=== PATIENT | female | born 1995 | race Caucasian/White ===

== ENCOUNTER → 2017-01-08 | Outpatient (CLI) | payer BC | LOC: MW.CHOBGYN 13:19 | PROVIDERS: ATTEND Nurse Practitioner Women's Health | DX: N92.1 Excessive and frequent menstruation with irregular cycle (principal) | CPT/HCPCS: 36415; 82627; 82670; 83001; 83002; 83498; 84144; 84146; 84270; 84402; 84439; 84443; 84703 ==

== ENCOUNTER → 2017-01-10 | Outpatient (CLI) | payer BC ==
--- NOTE | 2017-01-10 16:28 | US ---
EXAMINATION: Transvaginal pelvic ultrasound HISTORY: Irregular menstruation COMPARISON: None TECHNIQUE: Grayscale, color Doppler, and spectral Doppler images obtained transvaginally. FINDINGS: The uterus appears normal size, contour, and echogenicity without a focal uterine mass. En dometrial stripe thickness measures 5 mm. Both the left and right ovaries are normal in size, contour, and echogenicity demonstrating normal c olor and spectral Doppler flow. Multiple tiny follicles are noted. IMPRESSION: 1. Unremarkable transvaginal pelvic ultrasound.
== END ==
LOC: MW.US 10:18
PROVIDERS: ATTEND Nurse Practitioner Women's Health
DX: N92.1 Excessive and frequent menstruation with irregular cycle (principal)
CPT/HCPCS: 76830; 76830-26

== ENCOUNTER 2017-06-14 13:02 | Emergency (ER) | payer SELFPAY ==
[2017-06-14] MEDS ORDERED: Ketorolac 30 MG/ML SDV IVPUSH ONE (13:22)
[2017-06-14] MEDS ORDERED: Ondansetron 4 MG/2 ML SDV IVPUSH ONE (13:22)
--- NOTE | 2017-06-14 13:23 | EDM.PDOC ---
ED HPI GENERAL MEDICAL PROBLEM - General Chief Complaint: Fever Stated Complaint: FLU LIKE SYMPTOMS Time Seen by Provider: 06/14/17 13:04 Source of Information: Reports: Patient History Limitations: Reports: No Limitations - History of Present Illness INITIAL COMMENTS - FREE TEXT/NARRATIVE: HISTORY AND PHYSICAL: History of present illness: Patient is a 22-year-old female who presents to the emergency room today with complaints of body aches, fever, nausea, vomiting 6 days. Started to have a sore throat with a painful swallowing which started yesterday. Concerned that she has fever blisters to her mouth. Patient denies being around anyone who has had flulike symptoms of the past 24-48 hours. Reports that she has no current health problems but did have some "kidney issues" which are currently are now resolved. Patient does not remember her last menstraul period, as she is frequently irregular. She sees Magaly Salmeron the clinic for irregular menses. Reports she does have a possibility of today. Patient denies any specific abdominal pain, chest pain, shortness of breath, or diarrhea. Review of systems: As per history of present illness and below otherwise all systems reviewed and negative. Past medical history: As per history of present illness and as reviewed below otherwise noncontributory. Surgical history: As per history of present illness and as reviewed below otherwise noncontributory. Social history: No reported history of drug or alcohol abuse. Family history: As per history of present illness and as reviewed below otherwise noncontributory. Physical exam: General: Nontoxic appearing 22-year-old female. Answers questions appropriately. Alert and oriented HEENT: Atraumatic, normocephalic, pupils reactive, negative for conjunctival pallor or scleral icterus, mucous membranes moist, throat clear, neck supple, nontender, trachea midline. Lips appear dry with blistering noted to the right external coronary. Lungs: Clear to auscultation, breath sounds equal bilaterally, chest nontender. Heart: S1S2, regular rate and rhythm, tachycardic. Abdomen: Soft, nondistended, nontender. Negative for masses or hepatosplenomegaly. Negative for costovertebral tenderness. Pelvis: Stable nontender. Genitourinary: Deferred. Rectal: Deferred. Extremities: Atraumatic, negative for cords or calf pain. Neurovascular unremarkable. Neuro: Awake, alert, oriented. Cranial nerves II through XII unremarkable. Cerebellum unremarkable. Motor and sensory unremarkable throughout. Exam nonfocal. Patient received her IV fluid and IV medications. Patient reports that she does feel improvement. Pulse remains in the 120s at this time, I will give her a second liter of fluids. Reviewed her labs with the patient and feel that this is likely viral. She received her second liter of fluids and pulse is currently 106-110. Patient report she feels better and would like to be discharged. Offered a prescription for Zofran for her nausea, patient declined as she feels much improved. Encouraged patient to drink plenty of fluids at home I get plenty of rest. Instructed patient to follow-up with her primary care provider in the next 1-2 days. Patient voices understanding and is agreeable to plan of care. Denies any further questions or concerns at this time. Diagnostics: CBC, CMP, UA, urine , rapid strep, flu screen Therapeutics: IV fluid, Zofran, Toradol Impression: Viral illness Plan: 1. Please get plenty of rest. Drink plenty of fluids and eat a well-balanced diet at home. May take Tylenol for fever control. 2. Follow-up with your primary care provider in the next 1-2 days. Return to the ED as needed as discussed. Definitive disposition and diagnosis as appropriate pending reevaluation and review of above. Onset Date: 06/13/17 Duration: Day(s): Location: Reports: Neck, Generalized Improves with: Reports: None Worsens with: Reports: None Associated Symptoms: Reports: Fever/Chills, Nausea/Vomiting. Denies: Chest Pain , Cough, Rash, Shortness of Breath Generalized Pain Score (Numeric/FACES): 7 - Related Data Allergies Allergy/AdvReac Type Severity Reaction Status Date / Time No Known Allergies Allergy Verified 06/14/17 13:11 Home Meds: Home Meds . 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: Musculoskeletal History: Reports: None Neurological History: Reports: None Psychiatric History: Reports: None Endocrine/Metabolic History: Reports: None Hematologic History: Reports: None Immunologic History: Reports: None Oncologic (Cancer) History: Reports: None Dermatologic History: Reports: None - Infectious Disease History Infectious Disease History: Reports: None - Past Surgical History Head Surgeries/Procedures: Reports: None Female Surgical History: Reports: None Social & Family History - Family History Family Medical History: Noncontributory - Tobacco Use Smoking Status *Q: Former Smoker Years of Tobacco use: 3 Packs/Tins Daily: 0.5 Used Tobacco, but Quit: No Tobacco Use Comment: stated quit a month ago Second Hand Smoke Exposure: No - Caffeine Use Caffeine Use: Reports: Coffee, Soda - Alcohol Use Days Per Week of Alcohol Use: 0 Number of Drinks Per Day: 0 Total Drinks Per Week: 0 - Recreational Drug Use Recreational Drug Use: No ED ROS GENERAL - Review of Systems Review Of Systems: ROS reveals no pertinent complaints other than HPI. ED EXAM, GENERAL - Physical Exam Exam: See Below (See dictation) Course - Vital Signs Last Recorded V/S: Last Vital Signs Temp 37.6 C 06/14/17 13:11 Pulse 136 H 06/14/17 13:11 Resp 19 06/14/17 13:11 BP 122/77 06/14/17 13:11 Pulse Ox 97 06/14/17 13:11 - Orders/Labs/Meds Orders: Active Orders 24 hr Category Date Time Status CULTURE STREP A CONFIRMATION [] Stat Lab 06/14/17 13:38 Results STREP SCRN A RAPID W CULT CONF [] Stat Lab 06/14/17 13:38 Results Sodium Chloride 0.9% [Normal Saline] 1,000 ml Med 06/14/17 14:15 Active IV ASDIRECTED Medication Orders Sodium Chloride (Normal Saline) 1,000 mls @ 999 mls/hr IV ASDIRECTED MARVIN Labs: Laboratory Tests 06/14/17 06/14/17 06/14/17 Range/Units 13:20 13:20 13:25 WBC 11.77 H (4.0-11.0) K/uL RBC 5.17 (4.30-5.90) M/uL Hgb 15.8 (12.0-16.0) g/dL Hct 46.7 H (36.0-46.0) % MCV 90.3 (80.0-98.0) fL MCH 30.6 (27.0-32.0) pg MCHC 33.8 (31.0-37.0) g/dL RDW Std Deviation 43.1 (28.0-62.0) fl RDW Coeff of [place]ft[place] 13 (11.0-15.0) % Plt Count 237 (150-400) K/uL MPV 10.10 (7.40-12.00) fL Neut % (Auto) 74.7 (48.0-80.0) % Lymph % (Auto) 14.5 L (16.0-40.0) % [place] % (Auto) 10.5 (0.0-15.0) % Eos % (Auto) 0.1 (0.0-7.0) % Baso % (Auto) 0.2 (0.0-1.5) % Neut # (Auto) 8.8 H (1.4-5.7) K/uL Lymph # (Auto) 1.7 (0.6-2.4) K/uL [place] # (Auto) 1.2 H (0.0-0.8) K/uL Eos # (Auto) 0.0 (0.0-0.7) K/uL Baso # (Auto) 0.0 (0.0-0.1) K/uL Nucleated RBC % 0.0 /100WBC Nucleated RBCs # 0 K/uL Sodium 138 (136-146) mmol/L Potassium 4.3 (3.5-5.1) mmol/L Chloride 106 (98-110) mmol/L Carbon Dioxide 21 (21-31) mmol/L BUN 10 (6.0-23.0) mg/dL Creatinine 0.9 (0.6-1.5) mg/dL Est Cr Clr Drug Dosing 85.38 mL/min Estimated GFR (MDRD) > 60.0 ml/min Glucose 89 (60-110) mg/dL Calcium 9.7 (8.8-10.8) mg/dL Total Bilirubin 0.3 (0.1-1.5) mg/dL AST 36 (5-40) IU/L ALT 60 H (8-54) IU/L Alkaline Phosphatase 86 (40-150) Total Protein 8.0 (6.0-8.0) g/dL Albumin 4.3 (3.5-5.0) g/dL Globulin 3.7 H (2.0-3.5) g/dL Albumin/Globulin Ratio 1.2 L (1.3-2.8) Urine Color Urine Appearance Urine pH (5.0-8.0) Ur Specific [place] (1.001-1.035) Urine Protein (NEGATIVE) mg/dL Urine Glucose (UA) (NEGATIVE) mg/dL Urine Ketones (NEGATIVE) mg/dL Urine Occult Blood (NEGATIVE) Urine Nitrite (NEGATIVE) Urine Bilirubin (NEGATIVE) Urine Urobilinogen (<2.0) EU/dL Ur Leukocyte Esterase (NEGATIVE) Urine RBC (0-2/HPF) Urine WBC (0-5/HPF) Ur Epithelial Cells (NONE-FEW) Urine Bacteria (NEGATIVE) Urine HCG, Qual NEGATIVE (NEGATIVE) 06/14/17 Range/Units 13:25 WBC (4.0-11.0) K/uL RBC (4.30-5.90) M/uL Hgb (12.0-16.0) g/dL Hct (36.0-46.0) % MCV (80.0-98.0) fL MCH (27.0-32.0) pg MCHC (31.0-37.0) g/dL RDW Std Deviation (28.0-62.0) fl RDW Coeff of [place] (11.0-15.0) % Plt Count (150-400) K/uL MPV (7.40-12.00) fL Neut % (Auto) (48.0-80.0) % Lymph % (Auto) (16.0-40.0) % [place] % (Auto) (0.0-15.0) % Eos % (Auto) (0.0-7.0) % Baso % (Auto) (0.0-1.5) % Neut # (Auto) (1.4-5.7) K/uL Lymph # (Auto) (0.6-2.4) K/uL [place] # (Auto) (0.0-0.8) K/uL Eos # (Auto) (0.0-0.7) K/uL Baso # (Auto) (0.0-0.1) K/uL Nucleated RBC % /100WBC Nucleated RBCs # K/uL Sodium (136-146) mmol/L Potassium (3.5-5.1) mmol/L Chloride (98-110) mmol/L Carbon Dioxide (21-31) mmol/L BUN (6.0-23.0) mg/dL Creatinine (0.6-1.5) mg/dL Est Cr Clr Drug Dosing mL/min Estimated GFR (MDRD) ml/min Glucose (60-110) mg/dL Calcium (8.8-10.8) mg/dL Total Bilirubin (0.1-1.5) mg/dL AST (5-40) IU/L ALT (8-54) IU/L Alkaline Phosphatase (40-150) Total Protein (6.0-8.0) g/dL Albumin (3.5-5.0) g/dL Globulin (2.0-3.5) g/dL Albumin/Globulin Ratio (1.3-2.8) Urine Color YELLOW Urine Appearance CLEAR Urine pH 7.0 (5.0-8.0) Ur Specific [place] 1.015 (1.001-1.035) Urine Protein NEGATIVE (NEGATIVE) mg/dL Urine Glucose (UA) NEGATIVE (NEGATIVE) mg/dL Urine Ketones NEGATIVE (NEGATIVE) mg/dL Urine Occult Blood NEGATIVE (NEGATIVE) Urine Nitrite NEGATIVE (NEGATIVE) Urine Bilirubin NEGATIVE (NEGATIVE) Urine Urobilinogen 0.2 (<2.0) EU/dL Ur Leukocyte Esterase NEGATIVE (NEGATIVE) Urine RBC 0-1 (0-2/HPF) Urine WBC 0-1 (0-5/HPF) Ur Epithelial Cells FEW (NONE-FEW) Urine Bacteria FEW (NEGATIVE) Urine HCG, Qual (NEGATIVE) Meds: Medications Generic Name Dose Route Start Last Admin Trade Name Freq PRN Reason Stop Dose Admin Sodium Chloride 1,000 mls @ 999 mls/hr 06/14/17 14:15 Normal Saline IV ASDIRECTED MARVIN Discontinued Medications Generic Name Dose Route Start Last Admin Trade Name Freq PRN Reason Stop Dose Admin Sodium Chloride 1,000 mls @ 999 mls/hr 06/14/17 13:21 06/14/17 14:18 Normal Saline IV 06/14/17 14:21 999 mls/hr STAT ONE Administration Ketorolac Tromethamine 30 mg 06/14/17 13:22 06/14/17 13:29 Toradol IVPUSH 06/14/17 13:23 30 mg ONETIME ONE Administration Ondansetron HCl 4 mg 06/14/17 13:22 06/14/17 13:29 Zofran IVPUSH 06/14/17 13:23 4 mg ONETIME ONE Administration Departure - Departure Time of Disposition: 14:41 Disposition: Home, Self-Care 01 Clinical Impression: Viral illness - Discharge Information Referrals: PCP,None [Primary Care Provider] - Forms: ED Department Discharge Additional Instructions: My general discharge The following information is given to patients seen in the emergency department who are being discharged to home. This information is to outline your options for follow-up care. We provide all patients seen in our emergency department with a follow-up referral. The need for follow-up, as well as the timing and circumstances, are variable depending upon the specifics of your emergency department visit. If you don't have a primary care physician on staff, we will provide you with a referral. We always advise you to contact your personal physician following an emergency department visit to inform them of the circumstance of the visit and for follow-up with them and/or the need for any referrals to a consulting specialist. The emergency department will also refer you to a specialist when appropriate. This referral assures that you have the opportunity for follow-up care with a specialist. All of these measure are taken in an effort to provide you with optimal care, which includes your follow-up. Under all circumstances we always encourage you to contact your private physician who remains a resource for coordinating your care. When calling for follow-up care, please make the office aware that this follow-up is from your recent emergency room visit. If for any reason you are refused follow-up, please contact the [facility] Emergency Department at and asked to speak to the emergency department charge nurse. [facility] [address] [place] [id number] 1. Please get plenty of rest. Drink plenty of fluids and eat a well-balanced diet at home. May take Tylenol for body aches and fever control. 2. Follow-up with your primary care provider in the next 1-2 days. Return to the ED as needed as discussed. - My Orders Last 24 Hours: My Active Orders 06/14/17 13:38 CULTURE STREP A CONFIRMATION [RM] Stat STREP SCRN A RAPID W CULT CONF [RM] Stat 06/14/17 14:15 Sodium Chloride 0.9% [Normal Saline] 1,000 ml IV ASDIRECTED - Assessment/Plan Last 24 Hours: My Active Orders 06/14/17 13:38 CULTURE STREP A CONFIRMATION [RM] Stat STREP SCRN A RAPID W CULT CONF [RM] Stat 06/14/17 14:15 Sodium Chloride 0.9% [Normal Saline] 1,000 ml IV ASDIRECTED
[2017-06-14] MEDS: Sodium Chloride 0.9% 1,000 ML IV ONE ×2 (13:29→14:18)
[2017-06-14 13:56] LABS: CHLORIDE,CL 106 mmol/L (98-110); SODIUM,NA 138 mmol/L (136-146)
[2017-06-14] MEDS ORDERED: Sodium Chloride 0.9% 1,000 ML IV SCH (14:15)
[2017-06-14 14:54] VITALS: BP 121/63
== END 2017-06-14 14:54 | disposition home or self-care (01) ==
LOC: MW.ED 13:02
DX: B34.9 Viral infection, unspecified (principal); Z87.891 Personal history of nicotine dependence
CPT/HCPCS: 36415; 80053; 81001; 81025; 85025; 87081; 87804; 87880; 96361; 96374; 96375; 99283; J1885; J2405; J7040; 99282

== ENCOUNTER 2017-06-16 06:55 | Emergency (ER) | payer SELFPAY ==
[2017-06-16] MEDS ORDERED: Penicillin V Potassium 500 MG Tab PO ONE (08:05)
--- NOTE | 2017-06-16 08:34 | EDM.PDOC ---
ED HPI GENERAL MEDICAL PROBLEM - General Chief Complaint: ENT Problem Stated Complaint: FLU LIKE SYMPTOMS Time Seen by Provider: 06/16/17 08:24 Source of Information: Reports: Patient History Limitations: Reports: No Limitations - History of Present Illness INITIAL COMMENTS - FREE TEXT/NARRATIVE: HISTORY AND PHYSICAL: History of present illness: [22-year-old female with no significant past medical history now presents to the emergency department complaining of sore throat. Patient was recently diagnosed with a cold sore and now she is involved a sore throat with white plaques on her tonsils. Hurts to swallow but she does not have any voice changes or difficulty breathing. No headache or stiff neck. She does have some fevers and chills which are intermittent. No productive cough denies chest pain no abdominal pain normal bowel bladder habits] Review of systems: As per history of present illness and below otherwise all systems reviewed and negative. Past medical history: As per history of present illness and as reviewed below otherwise noncontributory. Surgical history: As per history of present illness and as reviewed below otherwise noncontributory. Social history: No reported history of drug or alcohol abuse. Family history: As per history of present illness and as reviewed below otherwise noncontributory. Physical exam: Well-appearing 22-year-old female no acute distress cold sore on her lower lip bilateral tonsillar exudates with no asymmetry. Midline uvula no stridor no dysphonia supple neck with no anterior cervical lymphadenopathy submental swelling or tongue elevation HEENT: Atraumatic, normocephalic, pupils reactive, negative for conjunctival pallor or scleral icterus, mucous membranes moist, with bilateral tonsillar white exudates consistent with strep, neck supple, nontender, trachea midline. Lungs: Clear to auscultation, breath sounds equal bilaterally, chest nontender. Heart: S1S2, regular, negative for clicks, rubs, or JVD. Abdomen: Soft, nondistended, nontender. Negative for masses or hepatosplenomegaly. Negative for costovertebral tenderness. Pelvis: Stable nontender. Genitourinary: Deferred. Rectal: Deferred. Extremities: Atraumatic, negative for cords or calf pain. Neurovascular unremarkable. Neuro: Awake, alert, oriented. Cranial nerves grossly unremarkable. Cerebellum unremarkable. Motor and sensory unremarkable throughout. Exam nonfocal. Diagnostics: [Exam clinically consistent with strep pharyngitis. Penicillin administered and prescribed. Rich screen pending] Therapeutics: [] Impression: [Strep pharyngitis Oral ulcers] Plan: [Signs and symptoms consistent with viral infection with oral ulcers now with strep superinfection suspicious for mononucleosis. Penicillin given Monospot pending. Prescription dispensed patient will follow up with primary care doctor she is aware first Monospot is positive contact sports or strenuous activity for 6 months and until otherwise directed by her doctor.] Definitive disposition and diagnosis as appropriate pending reevaluation and review of above. 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: Musculoskeletal History: Reports: None Neurological History: Reports: None Psychiatric History: Reports: None Endocrine/Metabolic History: Reports: None Hematologic History: Reports: None Immunologic History: Reports: None Oncologic (Cancer) History: Reports: None Dermatologic History: Reports: None - Infectious Disease History Infectious Disease History: Reports: None - Past Surgical History Head Surgeries/Procedures: Reports: None Female Surgical History: Reports: None Social & Family History - Family History Family Medical History: Noncontributory - Tobacco Use Smoking Status *Q: Never Smoker Years of Tobacco use: 3 Packs/Tins Daily: 0.5 Used Tobacco, but Quit: No Second Hand Smoke Exposure: No - Caffeine Use Caffeine Use: Reports: Coffee, Soda - Alcohol Use Days Per Week of Alcohol Use: 0 Number of Drinks Per Day: 0 Total Drinks Per Week: 0 - Recreational Drug Use Recreational Drug Use: No ED ROS ENT - Review of Systems Review Of Systems: See Below (Per history of present illness) ED EXAM, ENT - Physical Exam Exam: See Below (Per history of present illness) Course - Vital Signs Last Recorded V/S: Last Vital Signs Temp 37.9 C 06/16/17 07:16 Pulse 126 H 06/16/17 07:16 Resp 20 06/16/17 07:16 BP 131/85 06/16/17 07:16 Pulse Ox 98 06/16/17 07:16 - Orders/Labs/Meds Orders: Active Orders 24 hr Category Date Time Status MONONUCLEOSIS SCREEN [CHEM] Stat Lab 06/16/17 08:22 Ordered Meds: Medications Discontinued Medications Generic Name Dose Route Start Last Admin Trade Name Jamari PRN Reason Stop Dose Admin Penicillin V Potassium 500 mg 06/16/17 08:05 06/16/17 08:26 Veetids PO 06/16/17 08:06 500 mg ONETIME ONE Administration Departure - Departure Time of Disposition: 08:34 Disposition: Home, Self-Care 01 Condition: Good Clinical Impression: Strep pharyngitis, Oral ulcer - Discharge Information Instructions: Strep Throat Referrals: Magaly Salmeron DELIVERY DRIVER ASSISTANT [Primary Care Provider] - Forms: ED Department Discharge Additional Instructions: Appears that your oral ulcers or result of a viral syndrome and use over-the- counter oral ulcer treatment as desired. Your throat exam is consistent streptococcal pharyngitis, also known aswith strep throat. Finish penicillin as prescribed Take ibuprofen 800 mg every 6 hours and Tylenol every 4 hours as needed for discomfort or fevers. Rest and drink plenty of fluids. It is possible that you could have mononucleosis, which commonly can have a coinfection of strep throat. Follow-up with your in one to 2 days and return immediately for new severe or worsening symptoms Care Plan Goals: Rest and fluids. Complete the entire antibiotic regimen. Followup with your primary care provider. - My Orders Last 24 Hours: My Active Orders 06/16/17 08:22 MONONUCLEOSIS SCREEN [CHEM] Stat - Assessment/Plan Last 24 Hours: My Active Orders 06/16/17 08:22 MONONUCLEOSIS SCREEN [CHEM] Stat
[2017-06-16 09:11] VITALS: BP 124/70
== END 2017-06-16 08:50 | disposition home or self-care (01) ==
LOC: MW.ED 06:55
DX: J02.0 Streptococcal pharyngitis (principal); K12.1 Other forms of stomatitis
CPT/HCPCS: 36415; 86308; 99283; A9270; 99282

== ENCOUNTER 2018-03-17 17:27 | Inpatient (IN) | payer MEDICAID ==
[2018-03-17] MEDS ORDERED: Nalbuphine 10 MG/1 ML Vial IVPUSH PRN (18:11)
[2018-03-17] MEDS ORDERED: Water For Irrigation,Sterile 1,000 ML Container IRR PRN (18:11)
[2018-03-17] MEDS ORDERED: Tranexamic Acid 1,000 MG in Sodium Chloride 0.9% 100 ML IV PRN (18:11)
[2018-03-17] MEDS ORDERED: Sodium Chloride 0.9% 2.5 ML Syringe FLUSH PRN (18:11)
[2018-03-17] MEDS ORDERED: Carboprost Tromethamine 250 MCG/1 ML Amp IM PRN (18:11)
[2018-03-17] MEDS ORDERED: Sodium Chloride 0.9% 10 ML Syringe FLUSH PRN (18:11)
[2018-03-17] MEDS ORDERED: Terbutaline 1 MG/ML SDV SUBCUT PRN (18:11)
[2018-03-17] MEDS ORDERED: Misoprostol 200 MCG Tab PO PRN (18:11)
[2018-03-17] MEDS ORDERED: Methylergonovine 0.2 MG/1 ML Amp IM PRN (18:11)
[2018-03-17] MEDS ORDERED: Lidocaine 1% 50 ML MDV INJECT PRN (18:11)
[2018-03-17] MEDS ORDERED: Lactated Ringers 1,000 ML IV SCH (18:15)
[2018-03-17] MEDS ORDERED: Oxytocin/0.9 % Sodium Chloride 30 UNIT/500 ML BAG IV SCH ×2 (18:15)
--- NOTE | 2018-03-17 19:42 | PCM.LDHP ---
L&D History of Present Illness - General Date of Service: 03/17/18 Admit Problem/Dx: Patient Status Order with Admit Dx/Problem 03/17/18 18:11 Patient Status [ADT] Routine Admission Diagnosis/Problem Admission Diagnosis/Problem - planned 03/17/18 19:37 22 yo EDC 03/24/2018 39 0/7wks. O+, RI, GBS neg. IOL for term Source of Information: Patient History Limitations: Reports: No Limitations - History of Present Illness Improves with: Reports: None Worsens with: Reports: None Associated Symptoms: Reports: N - Related Data Allergies/Adverse Reactions: Allergies Allergy/AdvReac Type Severity Reaction Status Date / Time No Known Allergies Allergy Verified 03/11/18 20:08 Home Medications: Home Meds PNV95/Ferrous Fumarate/FA [ Tablet] 1 each PO 03/17/18 [History] Past Medical History - Past Health History Medical/Surgical History: Denies Medical/Surgical History HEENT History: Reports: None Cardiovascular History: Reports: None Respiratory History: Reports: None Gastrointestinal History: Reports: None Genitourinary History: Reports: None TRAINING INTERN History: Reports: Musculoskeletal History: Reports: None Neurological History: Reports: None Psychiatric History: Reports: None Endocrine/Metabolic History: Reports: None Hematologic History: Reports: Other (See Below) Other Hematologic History: easy bruising/bleeding Immunologic History: Reports: None Oncologic (Cancer) History: Reports: None Dermatologic History: Reports: None - Infectious Disease History Infectious Disease History: Reports: None - Past Surgical History Head Surgeries/Procedures: Reports: None Female Surgical History: Reports: None Social & Family History - Family History Family Medical History: Noncontributory - Caffeine Use Caffeine Use: Reports: Coffee, Soda H&P Review of Systems - Review of Systems: Review Of Systems: See Below General: Reports: No Symptoms HEENT: Reports: No Symptoms Pulmonary: Reports: No Symptoms Cardiovascular: Reports: No Symptoms Gastrointestinal: Reports: No Symptoms Genitourinary: Reports: No Symptoms Musculoskeletal: Reports: No Symptoms Skin: Reports: No Symptoms Psychiatric: Reports: No Symptoms Neurological: Reports: No Symptoms Hematologic/Lymphatic: Reports: No Symptoms Immunologic: Reports: No Symptoms L&D Exam - Exam Exam: See Below - Vital Signs Weight: 79.379 kg - OB Specific Contraction Intensity: Mild Movement: Active Heart Tones: Present Heart Tones per Min: 140 Heart Rate (FHR) Variability: Moderate (6-25 bmp) Presentation: Vertex Estimated Weight: 3200 - Gill Score Gill Score Cervix Position: Midposition Gill Score Consistency: Soft Gill Score Effacement: >80% Gill Score Dilation: 3-4 cm Gill Score Infant's Station: -1 ,0 Gill Score Total: 10 - Exam General: Alert, Oriented, Cooperative HEENT: Hearing Intact Lungs: Normal Respiratory Effort GI/Abdominal Exam: Soft, Non-Tender Rectal Exam: Deferred Genitourinary: Normal external exam, Normal bimanual exam, Cervical dilitation Back Exam: Normal Inspection, Full Range of Motion Extremities: Normal Inspection, Normal Range of Motion, Non-Tender, No Pedal Edema, Normal Capillary Refill Skin: Warm, Dry, Intact Neurological: Cranial Nerves Intact, Reflexes Equal Bilateral, Strength Equal Bilateral, Normal Speech, Normal Tone Psychiatric: Alert, Normal Affect, Normal Mood - Patient Data Lab Results Last 24 hrs: Laboratory Results - last 24 hr 03/17/18 Range/Units 18:44 WBC 8.57 (4.0-11.0) K/uL RBC 4.20 L (4.30-5.90) M/uL Hgb 11.3 L (12.0-16.0) g/dL Hct 35.1 L (36.0-46.0) % MCV 83.6 (80.0-98.0) fL MCH 26.9 L (27.0-32.0) pg MCHC 32.2 (31.0-37.0) g/dL RDW Std Deviation 42.2 (28.0-62.0) fl RDW Coeff of Neftaly 14 (11.0-15.0) % Plt Count 239 (150-400) K/uL MPV 10.30 (7.40-12.00) fL Nucleated RBC % 0.0 /100WBC Nucleated RBCs # 0 K/uL Result Diagrams: 03/17/18 18:44 - Problem List (1) Supervision of normal IUP (intrauterine ) in multigravida SNOMED Code(s): 257578290, 866036829, 454916004 ICD Code: Z34.80 - ENCOUNTER FOR SUPRVSN OF NORMAL , UNSP TRIMESTER Status: Acute Priority: High Current Visit: Yes Qualifiers: Trimester: third trimester Qualified Code(s): Z34.83 - Encounter for supervision of other normal , third trimester Problem List Initiated/Reviewed/Updated: Yes Orders Last 24hrs: Active Orders 24 hr Category Date Time Status Patient Status [ADT] Routine ADT 03/17/18 18:11 Active Communication Order [RC] ASDIRECTED Care 03/17/18 18:11 Active May Shower [RC] ASDIRECTED Care 03/17/18 18:11 Active Notify Provider [RC] PRN Care 03/17/18 18:11 Active Oxygen Therapy [RC] ASDIRECTED Care 03/17/18 18:11 Active Up ad Tory [RC] ASDIRECTED Care 03/17/18 18:11 Active Vital Signs [RC] PER UNIT ROUTINE Care 03/17/18 18:11 Active Regular Diet [DIET] Diet 03/18/18 Breakfast Active TYPE AND SCREEN [BBK] Routine Lab 03/17/18 18:44 Received Carboprost Tromethamine [Hemabate DS] Med 03/17/18 18:11 Active 250 mcg IM ASDIRECTED PRN Lactated Ringers [Ringers, Lactated] 1,000 ml Med 03/17/18 18:15 Active IV ASDIRECTED Lidocaine 1% [Xylocaine 1%] Med 03/17/18 18:11 Active 50 ml INJECT .ONCE PRN Methylergonovine [Methergine] Med 03/17/18 18:11 Active 0.2 mg IM ASDIRECTED PRN Misoprostol [Cytotec] Med 03/17/18 18:11 Active 200 mcg PO .ONCE PRN Nalbuphine [Nubain] Med 03/17/18 18:11 Active 10 mg IVPUSH Q1H PRN Oxytocin/0.9 % Sodium Chloride [Oxytocin 30 Unit/500 ML Med 03/17/18 18:15 Active -NS] 30 unit in 500 ml IV TITRATE Oxytocin/0.9 % Sodium Chloride [Oxytocin 30 Unit/500 ML Med 03/17/18 18:15 Active -NS] 30 unit in 500 ml IV TITRATE Sodium Chloride 0.9% [Saline Flush] Med 03/17/18 18:11 Active 10 ml FLUSH ASDIRECTED PRN Sodium Chloride 0.9% [Saline Flush] Med 03/17/18 18:11 Active 2.5 ml FLUSH ASDIRECTED PRN Terbutaline [Brethine] Med 03/17/18 18:11 Active 0.25 mg SUBCUT ASDIRECTED PRN Tranexamic Acid [Cyklokapron] 1,000 mg Med 03/17/18 18:11 Active Sodium Chloride 0.9% [Normal Saline] 100 ml IV ONETIME Water For Irrigation,Sterile [Sterile Water for Med 03/17/18 18:11 Active Irrigation] 1,000 ml IRR ASDIRECTED PRN Scalp Electrode [WOMSER] Per Unit Routine Oth 03/17/18 18:11 Ordered Medication Administration Instruction [OM.PC] Q3H Oth 03/17/18 18:15 Ordered Peripheral IV Insertion Adult [OM.PC] Routine Ot 03/17/18 18:11 Ordered Resuscitation Status Routine Resus Stat 03/17/18 18:11 Ordered Medication Orders Carboprost Tromethamine (Hemabate Ds) 250 mcg IM ASDIRECTED PRN PRN Reason: Post Hemorrhage Lactated Ringer's (Ringers, Lactated) 1,000 mls @ 150 mls/hr IV ASDIRECTED MARVIN Oxytocin/Sodium Chloride (Oxytocin 30 Unit/500 Ml-Ns) 30 unit in 500 mls @ 999 mls/hr IV TITRATE MARVIN Oxytocin/Sodium Chloride (Oxytocin 30 Unit/500 Ml-Ns) 30 unit in 500 mls @ 2 mls/hr IV TITRATE MARVIN; Protocol Tranexamic Acid 1,000 mg/ (Sodium Chloride) 110 mls @ 660 mls/hr IV ONETIME PRN PRN Reason: Bleeding Lidocaine HCl (Xylocaine 1%) 50 ml INJECT .ONCE PRN PRN Reason: Laceration repair Methylergonovine Maleate (Methergine) 0.2 mg IM ASDIRECTED PRN PRN Reason: Post Hemorrhage Misoprostol (Cytotec) 200 mcg PO .ONCE PRN PRN Reason: Post Hemorrhage Nalbuphine HCl (Nubain) 10 mg IVPUSH Q1H PRN PRN Reason: Pain (severe 7-10) Sodium Chloride (Saline Flush) 10 ml FLUSH ASDIRECTED PRN PRN Reason: Keep Vein Open Sodium Chloride (Saline Flush) 2.5 ml FLUSH ASDIRECTED PRN PRN Reason: Keep Vein Open Sterile Water (Sterile Water For Irrigation) 1,000 ml IRR ASDIRECTED PRN PRN Reason: delivery Terbutaline Sulfate (Brethine) 0.25 mg SUBCUT ASDIRECTED PRN PRN Reason: Tacysystole Assessment/Plan Comment:: IOL A: 22 yo EDC 03/24/2018 39 0/7wks. O+, RI, GBS neg. IOL for term. SVE 4/80 /0 AROM clear P: Admit, epidural prn, anticipate .
[2018-03-17] MEDS ORDERED: fentaNYL 100 MCG/2 ML SDV ONE (21:18)
[2018-03-17] MEDS ORDERED: oxyCODONE 5 MG Tab PO PRN (21:49)
[2018-03-17] MEDS ORDERED: Ibuprofen 400 MG Tab PO PRN (21:49)
[2018-03-17] MEDS ORDERED: Acetaminophen 500 MG Tab PO PRN ×2 (21:49)
[2018-03-17] MEDS ORDERED: Witch Hazel Medicated Pads 40/Jar TOP PRN (21:49)
[2018-03-17] MEDS ORDERED: Bisacodyl 10 MG Supp RECTAL PRN (21:49)
[2018-03-17] MEDS ORDERED: Lanolin 100% Cream 7 GM Tube TOP PRN (21:49)
[2018-03-17] MEDS ORDERED: Benzocaine/Menthol 20%-0.5% Spray 78 GM Cannister TOP PRN (21:49)
--- NOTE | 2018-03-17 21:57 | PCM.DEL ---
L & D Note - General Info Date of Service: 03/17/18 Mother's Due Date: 03/24/18 - Delivery Note Labor: Induced by ARM Delivery Outcome: Livebirth Infant Delivery Method: Spontaneous Vaginal Delivery-Single Presentation: Vertex Nuchal Cord: None Anesthesia Type: None Amniotic Fluid Description: Clear Episiotomy Type: None Laceration: None Placenta: Intact, Spontaneous Cord: 3 Vessels Resuscitation Needed: No Second Stage Interventions: Reports: Pushing, Pulls Own Legs Back Delivery Comments (Free Text/Narrative):: of viable male over intact perineum. Head delivered with good pushing, shoulders and body followed easily. Infant to mothers abdomen with RN at for evaluation. Delayed cord clamping. Pitocin to IVF. Cord clamped and cut by FOB. Cord blood collected. Placenta delivered grossly intact. Inspection noted intact perineum. EBL 100cc, APGARS 8/9, Wt: 8lb 7oz. Mother and baby left in stable condition. Induction Criteria - Glil Score Gill Score Dilation: 3-4 cm Gill Score Effacement: >80% Gill Score Infant's Station: -1 ,0 Gill Score Consistency: Soft Gill Score Cervix Position: Midposition Gill Score Total: 10 Gill Score Presenting Part: Reports: Cephalic - Induction Gestational Age >/= 39 wks: Yes Estimated Pelvis: Reports: Adequate Reassuring Monitoring Strip: Yes Absence of Tachy Systole: Yes - General Info Date of Service: 03/17/18 Admission Dx/Problem (Free Text): Patient Status Order with Admit Dx/Problem 03/17/18 18:11 Patient Status [ADT] Routine Admission Diagnosis/Problem Admission Diagnosis/Problem - planned 03/17/18 19:37 22 yo EDC 03/24/2018 39 0/7wks. O+, RI, GBS neg. IOL for term Functional Status: Reports: Pain Controlled, Tolerating Diet - Review of Systems General: Reports: No Symptoms HEENT: Reports: No Symptoms Pulmonary: Reports: No Symptoms Cardiovascular: Reports: No Symptoms Gastrointestinal: Reports: No Symptoms Genitourinary: Reports: No Symptoms Musculoskeletal: Reports: No Symptoms Skin: Reports: No Symptoms Neurological: Reports: No Symptoms Psychiatric: Reports: No Symptoms - Patient Data Weight - Most Recent: 79.379 kg Lab Results Last 24 Hours: Laboratory Results - last 24 hr 03/17/18 03/17/18 Range/Units 18:44 18:44 WBC 8.57 (4.0-11.0) K/uL RBC 4.20 L (4.30-5.90) M/uL Hgb 11.3 L (12.0-16.0) g/dL Hct 35.1 L (36.0-46.0) % MCV 83.6 (80.0-98.0) fL MCH 26.9 L (27.0-32.0) pg MCHC 32.2 (31.0-37.0) g/dL RDW Std Deviation 42.2 (28.0-62.0) fl RDW Coeff of Neftaly 14 (11.0-15.0) % Plt Count 239 (150-400) K/uL MPV 10.30 (7.40-12.00) fL Nucleated RBC % 0.0 /100WBC Nucleated RBCs # 0 K/uL Blood Type O POSITIVE Antibody Screen NEGATIVE Med Orders - Current: Current Medications Acetaminophen (Tylenol Extra Strength) 500 mg PO Q4H PRN PRN Reason: Pain Acetaminophen (Tylenol Extra Strength) 1,000 mg PO Q4H PRN PRN Reason: Pain Benzocaine/Menthol (Dermoplast Pain Relief 20%-0.5% [place]) 78 gm TOP ASDIRECTED PRN PRN Reason: Perineal Comfort Measure Bisacodyl (Dulcolax) 10 mg RECTAL .ONCE PRN PRN Reason: Constipation Docusate Sodium (Colace) 100 mg PO BID PRN PRN Reason: Constipation Emollient Ointment (Lansinoh Hpa) 0 gm TOP ASDIRECTED PRN PRN Reason: Sore Nipples Ibuprofen (Motrin) 400 mg PO Q4H PRN PRN Reason: Pain Ibuprofen (Motrin) 800 mg PO Q6H PRN PRN Reason: Pain Oxycodone HCl (Oxycodone) 5 mg PO Q2H PRN PRN Reason: Pain Witch Terri (Tucks) 1 pad TOP ASDIRECTED PRN PRN Reason: comfort care Discontinued Medications Carboprost Tromethamine (Hemabate Ds) 250 mcg IM ASDIRECTED PRN PRN Reason: Post Hemorrhage Fentanyl (Sublimaze) Confirm Administered Dose 100 mcg .ROUTE .STK-MED ONE Stop: 03/17/18 21:19 Lactated Ringer's (Ringers, Lactated) 1,000 mls @ 150 mls/hr IV ASDIRECTED MARVIN Last Admin: 03/17/18 20:33 Dose: 999 mls/hr Oxytocin/Sodium Chloride (Oxytocin 30 Unit/500 Ml-Ns) 30 unit in 500 mls @ 999 mls/hr IV TITRATE MARVIN Oxytocin/Sodium Chloride (Oxytocin 30 Unit/500 Ml-Ns) 30 unit in 500 mls @ 2 mls/hr IV TITRATE MARVIN; Protocol Tranexamic Acid 1,000 mg/ (Sodium Chloride) 110 mls @ 660 mls/hr IV ONETIME PRN PRN Reason: Bleeding Lidocaine HCl (Xylocaine 1%) 50 ml INJECT .ONCE PRN PRN Reason: Laceration repair Methylergonovine Maleate (Methergine) 0.2 mg IM ASDIRECTED PRN PRN Reason: Post Hemorrhage Misoprostol (Cytotec) 200 mcg PO .ONCE PRN PRN Reason: Post Hemorrhage Nalbuphine HCl (Nubain) 10 mg IVPUSH Q1H PRN PRN Reason: Pain (severe 7-10) Sodium Chloride (Saline Flush) 10 ml FLUSH ASDIRECTED PRN PRN Reason: Keep Vein Open Sodium Chloride (Saline Flush) 2.5 ml FLUSH ASDIRECTED PRN PRN Reason: Keep Vein Open Sterile Water (Sterile Water For Irrigation) 1,000 ml IRR ASDIRECTED PRN PRN Reason: delivery Terbutaline Sulfate (Brethine) 0.25 mg SUBCUT ASDIRECTED PRN PRN Reason: Tacysystole - Exam General: Alert, Oriented, Cooperative Lungs: Normal Respiratory Effort GI/Abdominal Exam: Soft, Non-Tender (Female) Exam: Normal External Exam, Normal Bimanual Exam, Vaginal Bleeding Back Exam: Normal Inspection, Full Range of Motion Extremities: Normal Inspection, Normal Range of Motion, Non-Tender, No Pedal Edema, Normal Capillary Refill Skin: Warm, Dry, Intact Wound/Incisions: Healing Well Neurological: No New Focal Deficit, Normal Speech, Normal Tone Psy/Mental Status: Alert, Normal Affect, Normal Mood - Problem List & Annotations (1) Supervision of normal IUP (intrauterine ) in multigravida SNOMED Code(s): 400551931, 359624282, 889397141 Code(s): Z34.80 - ENCOUNTER FOR SUPRVSN OF NORMAL , UNSP TRIMESTER Status: Acute Priority: High Current Visit: Yes Qualifiers: Trimester: third trimester Qualified Code(s): Z34.83 - Encounter for supervision of other normal , third trimester (2) (normal spontaneous vaginal delivery) SNOMED Code(s): 19010546 Code(s): O80 - ENCOUNTER FOR FULL-TERM UNCOMPLICATED DELIVERY Status: Acute Priority: High Current Visit: Yes - Problem List Review Problem List Initiated/Reviewed/Updated: Yes - My Orders Last 24 Hours: My Active Orders 03/17/18 18:11 Communication Order [RC] ASDIRECTED May Shower [RC] ASDIRECTED Notify Provider [RC] PRN Oxygen Therapy [RC] ASDIRECTED Up ad Tory [RC] ASDIRECTED Vital Signs [RC] PER UNIT ROUTINE 03/17/18 21:49 May Shower [RC] ASDIRECTED Up ad Tory [RC] ASDIRECTED Vital Signs [RC] PER UNIT ROUTINE Acetaminophen [Tylenol Extra Strength] 1,000 mg PO Q4H PRN Acetaminophen [Tylenol Extra Strength] 500 mg PO Q4H PRN Benzocaine/Menthol [Dermoplast Pain Relief 20%-0.5% [place]] 78 gm TOP ASDIRECTED PRN Bisacodyl [Dulcolax] 10 mg RECTAL .ONCE PRN Docusate Sodium [Colace] 100 mg PO BID PRN Ibuprofen [Motrin] 400 mg PO Q4H PRN Ibuprofen [Motrin] 800 mg PO Q6H PRN Lanolin [Lansinoh HPA] See Dose Instructions TOP ASDIRECTED PRN Witch Terri [Tucks] 1 pad TOP ASDIRECTED PRN oxyCODONE 5 mg PO Q2H PRN Assess Lochia [WOMSER] Per Unit Routine Assess Uterine Involution [WOMSER] Per Unit Routine Peripheral IV Discontinue [OM.PC] Routine Resuscitation Status Routine 03/17/18 21:51 Patient Status [ADT] Routine 03/18/18 Breakfast Regular Diet [DIET] - Plan Plan:: IOL A: 22 yo EDC 03/24/2018 39 0/7wks. O+, RI, GBS neg. IOL for term. SVE 4/80 /0 AROM clear P: Admit, epidural prn, anticipate . Delivery A: of viable male, APGARS 8/9, WT: 8lb 7oz, Intact perineum, EBL 100cc. Mother and baby bonding well P: Routine pp plan of care
[2018-03-17] MEDS: Ibuprofen 800 MG Tab PO PRN (22:19)
[2018-03-17] MEDS: Docusate Sodium 100 MG Cap PO PRN (22:20)
[2018-03-18] MEDS: Ibuprofen 800 MG Tab PO PRN ×3 (05:04→22:03)
--- NOTE | 2018-03-18 08:48 | PCM.DCSUM1 ---
Discharge Summary - Hospital Course Free Text/Narrative:: Discharge home with boy. Follow up in 6 weeks or sooner if needed. Diagnosis: Stroke: No - Discharge Data Discharge Date: 03/18/18 Discharge Disposition: Home, Self-Care 01 Condition: Good - Discharge Diagnosis/Problem(s) (1) Supervision of normal IUP (intrauterine ) in multigravida SNOMED Code(s): 219761739, 918518790, 480419575 ICD Code: Z34.80 - ENCOUNTER FOR SUPRVSN OF NORMAL , UNSP TRIMESTER Status: Acute Priority: High Current Visit: Yes Qualifiers: Trimester: third trimester Qualified Code(s): Z34.83 - Encounter for supervision of other normal , third trimester (2) (normal spontaneous vaginal delivery) SNOMED Code(s): 57526594 ICD Code: O80 - ENCOUNTER FOR FULL-TERM UNCOMPLICATED DELIVERY Status: Acute Priority: High Current Visit: Yes - Patient Instructions Diet: Usual Diet as Tolerated Activity: As Tolerated, No Strenuous Activities, Rest and Relax Today Driving: May Drive Today Showering/Bathing: May Shower Notify Provider of: Fever, Increased Pain, Swelling and Redness, Nausea and/or Vomiting Other/Special Instructions: Discharge home with boy. Follow up in 6 weeks or sooner if needed. - Discharge Plan Home Medications: Home Meds PNV95/Ferrous Fumarate/FA [ Tablet] 1 each PO 03/17/18 [History] - General Info Date of Service: 03/18/18 Admission Dx/Problem (Free Text: Patient Status Order with Admit Dx/Problem 03/17/18 18:11 Patient Status [ADT] Routine Admission Diagnosis/Problem Admission Diagnosis/Problem - planned 03/17/18 19:37 22 yo EDC 03/24/2018 39 0/7wks. O+, RI, GBS neg. IOL for term Functional Status: Reports: Pain Controlled, Tolerating Diet, Ambulating, Urinating - Review of Systems General: Reports: No Symptoms HEENT: Reports: No Symptoms Pulmonary: Reports: No Symptoms Cardiovascular: Reports: No Symptoms Gastrointestinal: Reports: No Symptoms Genitourinary: Reports: No Symptoms Musculoskeletal: Reports: No Symptoms Skin: Reports: No Symptoms Neurological: Reports: No Symptoms Psychiatric: Reports: No Symptoms - Patient Data Vitals - Most Recent: Last Vital Signs Temp 36.7 C 03/18/18 08:00 Pulse 72 03/18/18 08:00 Resp 18 03/18/18 08:00 BP 114/71 03/18/18 08:00 Pulse Ox 98 03/18/18 08:00 Weight - Most Recent: 79.379 kg Lab Results - Last 24 hrs: Laboratory Results - last 24 hr 03/17/18 03/17/18 Range/Units 18:44 18:44 WBC 8.57 (4.0-11.0) K/uL RBC 4.20 L (4.30-5.90) M/uL Hgb 11.3 L (12.0-16.0) g/dL Hct 35.1 L (36.0-46.0) % MCV 83.6 (80.0-98.0) fL MCH 26.9 L (27.0-32.0) pg MCHC 32.2 (31.0-37.0) g/dL RDW Std Deviation 42.2 (28.0-62.0) fl RDW Coeff of Neftaly 14 (11.0-15.0) % Plt Count 239 (150-400) K/uL MPV 10.30 (7.40-12.00) fL Nucleated RBC % 0.0 /100WBC Nucleated RBCs # 0 K/uL Blood Type O POSITIVE Antibody Screen NEGATIVE Med Orders - Current: Current Medications Acetaminophen (Tylenol Extra Strength) 500 mg PO Q4H PRN PRN Reason: Pain Acetaminophen (Tylenol Extra Strength) 1,000 mg PO Q4H PRN PRN Reason: Pain Benzocaine/Menthol (Dermoplast Pain Relief 20%-0.5% [place]) 78 gm TOP ASDIRECTED PRN PRN Reason: Perineal Comfort Measure Bisacodyl (Dulcolax) 10 mg RECTAL .ONCE PRN PRN Reason: Constipation Docusate Sodium (Colace) 100 mg PO BID PRN PRN Reason: Constipation Last Admin: 03/17/18 22:20 Dose: 100 mg Emollient Ointment (Lansinoh Hpa) 0 gm TOP ASDIRECTED PRN PRN Reason: Sore Nipples Ibuprofen (Motrin) 400 mg PO Q4H PRN PRN Reason: Pain Ibuprofen (Motrin) 800 mg PO Q6H PRN PRN Reason: Pain Last Admin: 03/18/18 05:04 Dose: 800 mg Oxycodone HCl (Oxycodone) 5 mg PO Q2H PRN PRN Reason: Pain Witch Terri (Tucks) 1 pad TOP ASDIRECTED PRN PRN Reason: comfort care Last Admin: 03/18/18 07:47 Dose: 1 tub Discontinued Medications Carboprost Tromethamine (Hemabate Ds) 250 mcg IM ASDIRECTED PRN PRN Reason: Post Hemorrhage Fentanyl (Sublimaze) Confirm Administered Dose 100 mcg .ROUTE .STK-MED ONE Stop: 03/17/18 21:19 Last Admin: 03/18/18 08:39 Dose: Not Given Lactated Ringer's (Ringers, Lactated) 1,000 mls @ 150 mls/hr IV ASDIRECTED MARVIN Last Admin: 03/17/18 20:33 Dose: 999 mls/hr Oxytocin/Sodium Chloride (Oxytocin 30 Unit/500 Ml-Ns) 30 unit in 500 mls @ 999 mls/hr IV TITRATE MARVIN Last Admin: 03/17/18 21:31 Dose: 999 mls/hr Oxytocin/Sodium Chloride (Oxytocin 30 Unit/500 Ml-Ns) 30 unit in 500 mls @ 2 mls/hr IV TITRATE MARVIN; Protocol Tranexamic Acid 1,000 mg/ (Sodium Chloride) 110 mls @ 660 mls/hr IV ONETIME PRN PRN Reason: Bleeding Lidocaine HCl (Xylocaine 1%) 50 ml INJECT .ONCE PRN PRN Reason: Laceration repair Methylergonovine Maleate (Methergine) 0.2 mg IM ASDIRECTED PRN PRN Reason: Post Hemorrhage Misoprostol (Cytotec) 200 mcg PO .ONCE PRN PRN Reason: Post Hemorrhage Nalbuphine HCl (Nubain) 10 mg IVPUSH Q1H PRN PRN Reason: Pain (severe 7-10) Sodium Chloride (Saline Flush) 10 ml FLUSH ASDIRECTED PRN PRN Reason: Keep Vein Open Sodium Chloride (Saline Flush) 2.5 ml FLUSH ASDIRECTED PRN PRN Reason: Keep Vein Open Sterile Water (Sterile Water For Irrigation) 1,000 ml IRR ASDIRECTED PRN PRN Reason: delivery Terbutaline Sulfate (Brethine) 0.25 mg SUBCUT ASDIRECTED PRN PRN Reason: Tacysystole - Exam General: Reports: Alert, Oriented, Cooperative, No Acute Distress Lungs: Reports: Normal Respiratory Effort GI/Abdominal Exam: Soft, Non-Tender, No Organomegaly, No Distention, No Abnormal Bruit, No Mass, Pelvis Stable (Female) Exam: Vaginal Bleeding Rectal (Female) Exam: Deferred Back Exam: Reports: Normal Inspection, Full Range of Motion Extremities: Normal Inspection, Normal Range of Motion, Non-Tender, No Pedal Edema, Normal Capillary Refill Skin: Reports: Warm, Dry, Intact Wound/Incisions: Reports: Healing Well Neurological: Reports: No New Focal Deficit, Normal Gait, Normal Speech, Normal Tone, Strength Equal Bilateral Psy/Mental Status: Reports: Alert, Normal Affect, Normal Mood
[2018-03-18] MEDS: Docusate Sodium 100 MG Cap PO PRN (22:03)
[2018-03-19 05:42] VITALS: BP 118/68
--- NOTE | 2018-03-19 08:31 | PCM.DCSUM1 ---
Discharge Summary - Hospital Course Free Text/Narrative:: Discharge home with , Follow up in 6 weeks or sooner if needed. Diagnosis: Stroke: No - Discharge Data Discharge Date: 03/19/18 Discharge Disposition: Home, Self-Care 01 Condition: Good - Discharge Diagnosis/Problem(s) (1) Supervision of normal IUP (intrauterine ) in multigravida SNOMED Code(s): 435285968, 800620615, [id number] ICD Code: Z34.80 - ENCOUNTER FOR SUPRVSN OF NORMAL , UNSP TRIMESTER Status: Acute Priority: High Current Visit: Yes Qualifiers: Trimester: third trimester Qualified Code(s): Z34.83 - Encounter for supervision of other normal , third trimester (2) (normal spontaneous vaginal delivery) SNOMED Code(s): 23538478 ICD Code: O80 - ENCOUNTER FOR FULL-TERM UNCOMPLICATED DELIVERY Status: Acute Priority: High Current Visit: Yes - Patient Instructions Diet: Usual Diet as Tolerated Activity: As Tolerated, No Strenuous Activities, Rest and Relax Today Driving: May Drive Today Showering/Bathing: May Shower Notify Provider of: Fever, Increased Pain, Swelling and Redness, Nausea and/or Vomiting Other/Special Instructions: Discharge home with boy. Follow up in 6 weeks or sooner if needed. - Discharge Plan Home Medications: Home Meds PNV95/Ferrous Fumarate/FA [ Tablet] 1 each PO 03/17/18 [History] Patient Handouts: Home Care Instructions for Mom, Vaginal Delivery, Care After Referrals: [facility] [Outside] Padma Mohan CNM [Mid-] - 04/29/18 1:30 pm - General Info Admission Dx/Problem (Free Text: Patient Status Order with Admit Dx/Problem 03/17/18 18:11 Patient Status [ADT] Routine Admission Diagnosis/Problem Admission Diagnosis/Problem - planned 03/17/18 19:37 22 yo EDC 03/24/2018 39 0/7wks. O+, RI, GBS neg. IOL for term Functional Status: Reports: Pain Controlled, Tolerating Diet, Ambulating, Urinating - Review of Systems General: Reports: No Symptoms HEENT: Reports: No Symptoms Pulmonary: Reports: No Symptoms Cardiovascular: Reports: No Symptoms Gastrointestinal: Reports: No Symptoms Genitourinary: Reports: No Symptoms Musculoskeletal: Reports: No Symptoms Skin: Reports: No Symptoms Neurological: Reports: No Symptoms Psychiatric: Reports: No Symptoms - Patient Data Vitals - Most Recent: Last Vital Signs Temp 36.8 C 03/19/18 05:00 Pulse 67 03/19/18 05:00 Resp 16 03/19/18 05:00 BP 118/68 03/19/18 05:00 Pulse Ox 96 03/19/18 05:00 Weight - Most Recent: 79.379 kg Med Orders - Current: Current Medications Acetaminophen (Tylenol Extra Strength) 500 mg PO Q4H PRN PRN Reason: Pain Acetaminophen (Tylenol Extra Strength) 1,000 mg PO Q4H PRN PRN Reason: Pain Last Admin: 03/18/18 09:09 Dose: 1,000 mg Benzocaine/Menthol (Dermoplast Pain Relief 20%-0.5% [place]) 78 gm TOP ASDIRECTED PRN PRN Reason: Perineal Comfort Measure Bisacodyl (Dulcolax) 10 mg RECTAL .ONCE PRN PRN Reason: Constipation Docusate Sodium (Colace) 100 mg PO BID PRN PRN Reason: Constipation Last Admin: 03/18/18 22:03 Dose: 100 mg Emollient Ointment (Lansinoh Hpa) 0 gm TOP ASDIRECTED PRN PRN Reason: Sore Nipples Ibuprofen (Motrin) 400 mg PO Q4H PRN PRN Reason: Pain Ibuprofen (Motrin) 800 mg PO Q6H PRN PRN Reason: Pain Last Admin: 03/18/18 22:03 Dose: 800 mg Oxycodone HCl (Oxycodone) 5 mg PO Q2H PRN PRN Reason: Pain Witch Terri (Tucks) 1 pad TOP ASDIRECTED PRN PRN Reason: comfort care Last Admin: 03/18/18 07:47 Dose: 1 tub Discontinued Medications Carboprost Tromethamine (Hemabate Ds) 250 mcg IM ASDIRECTED PRN PRN Reason: Post Hemorrhage Fentanyl (Sublimaze) Confirm Administered Dose 100 mcg .ROUTE .STK-MED ONE Stop: 03/17/18 21:19 Last Admin: 03/18/18 08:39 Dose: Not Given Lactated Ringer's (Ringers, Lactated) 1,000 mls @ 150 mls/hr IV ASDIRECTED MARVIN Last Admin: 03/17/18 20:33 Dose: 999 mls/hr Oxytocin/Sodium Chloride (Oxytocin 30 Unit/500 Ml-Ns) 30 unit in 500 mls @ 999 mls/hr IV TITRATE MARVIN Last Admin: 03/17/18 21:31 Dose: 999 mls/hr Oxytocin/Sodium Chloride (Oxytocin 30 Unit/500 Ml-Ns) 30 unit in 500 mls @ 2 mls/hr IV TITRATE MARVIN; Protocol Tranexamic Acid 1,000 mg/ (Sodium Chloride) 110 mls @ 660 mls/hr IV ONETIME PRN PRN Reason: Bleeding Lidocaine HCl (Xylocaine 1%) 50 ml INJECT .ONCE PRN PRN Reason: Laceration repair Methylergonovine Maleate (Methergine) 0.2 mg IM ASDIRECTED PRN PRN Reason: Post Hemorrhage Misoprostol (Cytotec) 200 mcg PO .ONCE PRN PRN Reason: Post Hemorrhage Nalbuphine HCl (Nubain) 10 mg IVPUSH Q1H PRN PRN Reason: Pain (severe 7-10) Sodium Chloride (Saline Flush) 10 ml FLUSH ASDIRECTED PRN PRN Reason: Keep Vein Open Sodium Chloride (Saline Flush) 2.5 ml FLUSH ASDIRECTED PRN PRN Reason: Keep Vein Open Sterile Water (Sterile Water For Irrigation) 1,000 ml IRR ASDIRECTED PRN PRN Reason: delivery Terbutaline Sulfate (Brethine) 0.25 mg SUBCUT ASDIRECTED PRN PRN Reason: Tacysystole - Exam General: Reports: Alert, Oriented, Cooperative, No Acute Distress Lungs: Reports: Normal Respiratory Effort GI/Abdominal Exam: Normal Bowel Sounds, Soft, Non-Tender, No Organomegaly, No Distention, No Abnormal Bruit, No Mass, Pelvis Stable (Female) Exam: Vaginal Bleeding Rectal (Female) Exam: Deferred Back Exam: Reports: Normal Inspection, Full Range of Motion Extremities: Normal Inspection Skin: Reports: Warm, Dry, Intact Wound/Incisions: Reports: Healing Well Neurological: Reports: No New Focal Deficit, Normal Gait, Normal Speech, Normal Tone, Strength Equal Bilateral Psy/Mental Status: Reports: Alert, Normal Affect, Normal Mood
== END 2018-03-19 10:25 | disposition home or self-care (01) | DRG 775 ==
LOC: MW.OBCHECK 17:27 → MW.OB 17:32 → MW.OBCHECK 18:11 → MW.OB 18:22 → OBSVTOIN 21:36
PROVIDERS: ADMIT Obstetrics & Gynecology; ATTEND Advanced Practice Midwife
PROC: 10E0XZZ Delivery of Products of Conception, External Approach (ICD-10-PCS; principal; 2018-03-17)
PROC: 10907ZC Drainage of Amniotic Fluid, Therapeutic from Products of Conception, Via Natural or Artificial Opening (ICD-10-PCS; 2018-03-17)
DX: O80 Encounter for full-term uncomplicated delivery (principal); Z3A.39 39 weeks gestation of pregnancy; Z37.0 Single live birth
CPT/HCPCS: 36415; 59025; 59409; 85027; 86850; 86900; 86901; A9270-GY; J2590; J3010; J7120

== ENCOUNTER 2018-06-24 12:08 | Emergency (ER) | payer MEDICAID ==
--- NOTE | 2018-06-24 14:17 | EDM.PDOC ---
ED HPI GENERAL MEDICAL PROBLEM - General Chief Complaint: ENT Problem Stated Complaint: SORE THROAT,COUGH Time Seen by Provider: 06/24/18 12:11 Source of Information: Reports: Patient History Limitations: Reports: No Limitations - History of Present Illness INITIAL COMMENTS - FREE TEXT/NARRATIVE: History of present illness: []Patient presents with sore throat and has been exposed to her whole family has cold symptoms. Patient awoke this morning and felt that she might have strep and wanted to be checked. Patient denies having any fevers but she has been having chills and a cough. Review of systems: As per history of present illness and below otherwise all systems reviewed and negative. Past medical history: As per history of present illness and as reviewed below otherwise noncontributory. Surgical history: As per history of present illness and as reviewed below otherwise noncontributory. Social history: No reported history of drug or alcohol abuse. Family history: As per history of present illness and as reviewed below otherwise noncontributory. Physical exam: General: Well developed, well nourished in NAD HEENT: Atraumatic, normocephalic, pupils reactive, negative for conjunctival pallor or scleral icterus, mucous membranes moist, throat clear, no exudate or erythema neck supple, nontender, trachea midline. No stridor Lungs: Clear to auscultation, breath sounds equal bilaterally, chest nontender. Heart: S1S2, regular, negative for clicks, rubs, or JVD. Abdomen: Soft, nondistended, nontender. Negative for masses or hepatosplenomegaly. Negative for costovertebral tenderness. Pelvis: Stable nontender. Genitourinary: Deferred. Rectal: Deferred. Extremities: Atraumatic, negative for cords or calf pain. Neurovascular unremarkable. Neuro: Awake, alert, oriented. Cranial nerves II through XII unremarkable. Cerebellum unremarkable. Motor and sensory unremarkable throughout. Exam nonfocal. Skin:warm and dry Diagnostics: Rapid strep Negative Therapeutics: None ED Course: Unremarkable Impression: Viral syndrome Prescriptions: None Plan: Follow-up with primary care as needed Definitive disposition and diagnosis as appropriate pending reevaluation and review of above. - Related Data Allergies Allergy/AdvReac Type Severity Reaction Status Date / Time No Known Allergies Allergy Verified 06/24/18 12:31 Home Meds: Home Meds . 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: Musculoskeletal History: Reports: None Neurological History: Reports: None Psychiatric History: Reports: None Endocrine/Metabolic History: Reports: None Hematologic History: Reports: Other (See Below) Other Hematologic History: easy bruising/bleeding Immunologic History: Reports: None Oncologic (Cancer) History: Reports: None Dermatologic History: Reports: None - Infectious Disease History Infectious Disease History: Reports: None - Past Surgical History Head Surgeries/Procedures: Reports: None Female Surgical History: Reports: None Social & Family History - Family History Family Medical History: Noncontributory - Tobacco Use Smoking Status *Q: Never Smoker - Caffeine Use Caffeine Use: Reports: Coffee, Energy Drinks, Soda, Tea - Recreational Drug Use Recreational Drug Use: No ED ROS GENERAL - Review of Systems Review Of Systems: ROS reveals no pertinent complaints other than HPI. ED EXAM, GENERAL - Physical Exam Exam: See Below (See history of present illness) Course - Vital Signs Last Recorded V/S: Last Vital Signs Temp 97.2 F 06/24/18 12:29 Pulse 107 H 06/24/18 12:29 Resp 16 06/24/18 12:29 BP 114/75 06/24/18 12:29 Pulse Ox 96 06/24/18 12:29 - Orders/Labs/Meds Orders: Active Orders 24 hr Category Date Time Status CULTURE STREP A CONFIRMATION [] Stat Lab 06/24/18 12:50 Results STREP SCRN A RAPID W CULT CONF [RM] Stat Lab 06/24/18 12:50 Results Departure - Departure Time of Disposition: 14:16 Disposition: Home, Self-Care 01 Condition: Good Clinical Impression: Viral pharyngitis - Discharge Information *PRESCRIPTION DRUG MONITORING PROGRAM REVIEWED*: No *COPY OF PRESCRIPTION DRUG MONITORING REPORT IN PATIENT GEORGINA: No Referrals: Ky Glover MD [Primary Care Provider] - Additional Instructions: The following information is given to patients seen in the emergency department who are being discharged to home. This information is to outline your options for follow-up care. We provide all patients seen in our emergency department with a follow-up referral. The need for follow-up, as well as the timing and circumstances, are variable depending upon the specifics of your emergency department visit. If you don't have a primary care physician on staff, we will provide you with a referral. We always advise you to contact your personal physician following an emergency department visit to inform them of the circumstance of the visit and for follow-up with them and/or the need for any referrals to a consulting specialist. The emergency department will also refer you to a specialist when appropriate. This referral assures that you have the opportunity for follow-up care with a specialist. All of these measure are taken in an effort to provide you with optimal care, which includes your follow-up. Under all circumstances we always encourage you to contact your private physician who remains a resource for coordinating your care. When calling for follow-up care, please make the office aware that this follow-up is from your recent emergency room visit. If for any reason you are refused follow-up, please contact the [facility] Emergency Department at and asked to speak to the emergency department charge nurse. [facility] [address] [place] [address] - My Orders Last 24 Hours: My Active Orders 06/24/18 12:50 CULTURE STREP A CONFIRMATION [RM] Stat STREP SCRN A RAPID W CULT CONF [RM] Stat - Assessment/Plan Last 24 Hours: My Active Orders 06/24/18 12:50 CULTURE STREP A CONFIRMATION [RM] Stat STREP SCRN A RAPID W CULT CONF [RM] Stat
[2018-06-24 14:27] VITALS: BP 112/70
== END 2018-06-24 14:10 | disposition home or self-care (01) ==
LOC: MW.ED 12:08
DX: J02.8 Acute pharyngitis due to other specified organisms (principal); B97.89 Other viral agents as the cause of diseases classified elsewhere
CPT/HCPCS: 87081; 87880-QW; 99282; 99283

== ENCOUNTER 2019-11-04 03:10 | Emergency (ER) | payer MEDICAID ==
--- NOTE | 2019-11-04 03:23 | EDM.PDOC ---
ED HPI GENERAL MEDICAL PROBLEM - General Chief Complaint: Respiratory Problem Stated Complaint: SOB Time Seen by Provider: 11/04/19 03:18 Source of Information: Reports: Patient - History of Present Illness INITIAL COMMENTS - FREE TEXT/NARRATIVE: CC cough fever HPI: This is a 24-year-old female who is 32 weeks who is been sick with a fever and a cough and difficulty breathing for the past 3 days. Family members are sick at home similarly. No vaginal bleeding. Patient is feeling the baby move. Eating or diarrhea. PMHX/PSHX: G4, P2 Social History: Negative for tobacco, negative for alcohol, negative for street drugs or marijuana Family history: Hypertension ROS: see chart PE: VS afebrile vital signs stable General: No apparent distress Head: Atraumatic normocephalic no lumps bumps or bruises Eyes: EOMI PERRLA Ears: TMs intact no hemotympanum no signs of infection no mastoid tenderness Nose: No epistaxis nares patent no septal wall hematoma Throat: No pharyngeal erythema or exudate no tonsillar enlargement Neck: Supple, no cervical lymphadenopathy Chest wall: No point tenderness Heart: Regular rate and rhythm without murmur gallop or rub Lungs: Clear to auscultation and percussion without rales rhonchi or wheeze Abdomen: Soft nontender nondistended without guarding rigidity or rebound Neck: No spinal point tenderness full range of motion in all 6 directions Back: No spinal paraspinal or CVA tenderness Extremities: full rom through out. no effusions skin: Warm dry intact no rashes neurologic: cranial nerves II through XII intact. No focal motor or sensory deficits noted MDM: Differential diagnosis: Pneumonia influenza ED course: Patient is flu B positive. Is negative. No signs of pneumonia patient refuses a chest x-ray. Case was discussed with her OB who recommends monitoring here. It is too late to start the patient on Tamiflu as she has had the symptoms for 3 to 4 days. Diagnosis: Influenza B Disposition: Home Generalized Pain Score (Numeric/FACES): 5 - Related Data Allergies Allergy/AdvReac Type Severity Reaction Status Date / Time No Known Allergies Allergy Verified 11/04/19 03:15 Home Meds: Home Meds . 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: Musculoskeletal History: Reports: None Neurological History: Reports: None Psychiatric History: Reports: None Endocrine/Metabolic History: Reports: None Hematologic History: Reports: Other (See Below) Other Hematologic History: easy bruising/bleeding Immunologic History: Reports: None Oncologic (Cancer) History: Reports: None Dermatologic History: Reports: None - Infectious Disease History Infectious Disease History: Reports: None - Past Surgical History Head Surgeries/Procedures: Reports: None Female Surgical History: Reports: None Social & Family History - Family History Family Medical History: Noncontributory - Caffeine Use Caffeine Use: Reports: Coffee, Energy Drinks, Soda, Tea ED ROS GENERAL - Review of Systems Review Of Systems: Comprehensive ROS is negative, except as noted in HPI. ED EXAM, GENERAL - Physical Exam Exam: See Below Free Text/Narrative:: See my dictation Course - Vital Signs Last Recorded V/S: Last Vital Signs Temp 37.9 C 11/04/19 03:55 Pulse 120 H 11/04/19 03:43 Resp 18 11/04/19 03:43 BP 118/75 11/04/19 03:15 Pulse Ox 97 11/04/19 03:43 - Orders/Labs/Meds Orders: Active Orders 24 hr Category Date Time Status EKG 12 Lead [EKG Documentation Completion] [RC] STAT Care 11/04/19 03:41 Active CULTURE STREP A CONFIRMATION [] Stat Lab 11/04/19 03:36 Results STREP SCRN A RAPID W CULT CONF [] Stat Lab 11/04/19 03:36 Results Meds: Medications Discontinued Medications Generic Name Dose Route Start Last Admin Trade Name Freq PRN Reason Stop Dose Admin Acetaminophen 1,000 mg 11/04/19 03:50 11/04/19 03:55 Tylenol Extra Strength PO 11/04/19 03:51 1,000 mg ONETIME ONE Administration Departure - Departure Time of Disposition: 04:13 Disposition: Home, Self-Care 01 Clinical Impression: Influenza B, Viral disease - Discharge Information Referrals: PCP,None [Primary Care Provider] - Forms: ED Department Discharge Additional Instructions: Push fluids. Take Tylenol for your fever or body aches. Follow-up with your OB. Sepsis Event Note - Focused Exam Vital Signs: Vital Signs Temp Temp Pulse Resp BP Pulse Ox 11/04/19 03:55 37.9 C 11/04/19 03:43 37.6 C 120 H 18 97 11/04/19 03:15 36.8 C 122 H 14 118/75 97 Date Exam was Performed: 11/04/19 Time Exam was Performed: 04:09 - My Orders Last 24 Hours: My Active Orders 11/04/19 03:36 CULTURE STREP A CONFIRMATION [RM] Stat STREP SCRN A RAPID W CULT CONF [RM] Stat 11/04/19 03:41 EKG 12 Lead [EKG Documentation Completion] [RC] STAT - Assessment/Plan Last 24 Hours: My Active Orders 11/04/19 03:36 CULTURE STREP A CONFIRMATION [RM] Stat STREP SCRN A RAPID W CULT CONF [RM] Stat 11/04/19 03:41 EKG 12 Lead [EKG Documentation Completion] [RC] STAT
[2019-11-04] MEDS ORDERED: Acetaminophen 500 MG Tab PO ONE (03:50)
[2019-11-04 04:23] VITALS: BP 117/66; PULSE 122
== END 2019-11-04 04:24 | disposition home or self-care (01) ==
LOC: MW.ED 03:10
DX: O99.513 Diseases of the respiratory system complicating pregnancy, third trimester (principal); J10.1 Influenza due to other identified influenza virus with other respiratory manifestations; Z3A.32 32 weeks gestation of pregnancy
CPT/HCPCS: 87081; 87804; 87880; 93005; 99285; A9270

== ENCOUNTER 2019-11-12 07:10 | Inpatient (IN) | payer MEDICAID ==
[2019-11-12] MEDS ORDERED: Sodium Chloride 0.9% 2.5 ML Syringe FLUSH PRN (08:02)
[2019-11-12] MEDS ORDERED: Misoprostol 200 MCG Tab PO PRN (08:02)
[2019-11-12] MEDS ORDERED: Ondansetron 4 MG/2 ML SDV IVPUSH PRN (08:02)
[2019-11-12] MEDS ORDERED: Water For Irrigation,Sterile 1,000 ML Container IRR PRN (08:02)
[2019-11-12] MEDS ORDERED: Lidocaine 1% 50 ML MDV INJECT PRN (08:02)
[2019-11-12] MEDS ORDERED: Tranexamic Acid 1,000 MG in Sodium Chloride 0.9% 100 ML IV PRN (08:02)
[2019-11-12] MEDS ORDERED: Methylergonovine 0.2 MG/1 ML Amp IM PRN (08:02)
[2019-11-12] MEDS ORDERED: Sodium Chloride 0.9% 10 ML Syringe FLUSH PRN (08:02)
[2019-11-12] MEDS ORDERED: Sodium Chloride 0.9% 10 ML SDV IV PRN (08:02)
[2019-11-12] MEDS ORDERED: Nalbuphine 10 MG/1 ML Vial IVPUSH PRN (08:02)
[2019-11-12] MEDS ORDERED: Carboprost Tromethamine 250 MCG/1 ML Amp IM PRN (08:02)
[2019-11-12] MEDS ORDERED: Terbutaline 1 MG/ML SDV SUBCUT PRN (08:09)
[2019-11-12] MEDS ORDERED: Oxytocin/0.9 % Sodium Chloride 30 UNIT/500 ML BAG IV SCH ×2 (08:15)
--- NOTE | 2019-11-12 08:44 | PCM.LDHP ---
L&D History of Present Illness - General Date of Service: 11/12/19 Admit Problem/Dx: Patient Status Order with Admit Dx/Problem 11/12/19 08:02 Patient Status [ADT] Routine Admission Diagnosis/Problem Admission Diagnosis/Problem 11/12/19 08:39 24 yo presenting for IOL at 39 weeks, O+, Rubella immune, GBS negative, EDC 11/19/19 Source of Information: Patient History Limitations: Reports: No Limitations - History of Present Illness Improves with: Reports: None Worsens with: Reports: None Associated Symptoms: Reports: N - Related Data Allergies/Adverse Reactions: Allergies Allergy/AdvReac Type Severity Reaction Status Date / Time No Known Allergies Allergy Verified 11/04/19 03:15 Home Medications: Home Meds . 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: Musculoskeletal History: Reports: None Neurological History: Reports: None Psychiatric History: Reports: None Endocrine/Metabolic History: Reports: None Hematologic History: Reports: Other (See Below) Other Hematologic History: easy bruising/bleeding Immunologic History: Reports: None Oncologic (Cancer) History: Reports: None Dermatologic History: Reports: None - Infectious Disease History Infectious Disease History: Reports: None - Past Surgical History Head Surgeries/Procedures: Reports: None Female Surgical History: Reports: None Social & Family History - Family History Family Medical History: Noncontributory - Caffeine Use Caffeine Use: Reports: Coffee, Energy Drinks, Soda, Tea H&P Review of Systems - Review of Systems: Review Of Systems: See Below General: Reports: No Symptoms HEENT: Reports: No Symptoms Pulmonary: Reports: No Symptoms Cardiovascular: Reports: No Symptoms Gastrointestinal: Reports: No Symptoms Genitourinary: Reports: No Symptoms Musculoskeletal: Reports: No Symptoms Skin: Reports: No Symptoms Psychiatric: Reports: No Symptoms Neurological: Reports: No Symptoms Hematologic/Lymphatic: Reports: No Symptoms Immunologic: Reports: No Symptoms L&D Exam - Exam Exam: See Below - Vital Signs Weight: 192 lb - Gill Score Gill Score Cervix Position: Midposition Gill Score Consistency: Soft Gill Score Effacement: 51-70% Gill Score Dilation: 3-4 cm Gill Score Infant's Station: -2 Gill Score Total: 8 - Exam General: Alert, Oriented, Cooperative Lungs: Normal Respiratory Effort GI/Abdominal Exam: Soft, Non-Tender Rectal Exam: Deferred Genitourinary: Deferred Back Exam: Normal Inspection, Full Range of Motion Extremities: Normal Inspection, Normal Range of Motion, Non-Tender, No Pedal Edema Skin: Warm, Dry, Intact Neurological: Strength Equal Bilateral, Normal Gait, Normal Speech, Normal Tone , Sensation Intact Psychiatric: Alert, Normal Affect, Normal Mood - Problem List (1) Supervision of normal IUP (intrauterine ) in multigravida SNOMED Code(s): 763382578, 907468602, 332608968 ICD Code: Z34.80 - ENCOUNTER FOR SUPRVSN OF NORMAL , UNSP TRIMESTER Status: Acute Priority: High Current Visit: Yes Qualifiers: Trimester: third trimester Qualified Code(s): Z34.83 - Encounter for supervision of other normal , third trimester Problem List Initiated/Reviewed/Updated: Yes Orders Last 24hrs: Active Orders 24 hr Category Date Time Status Patient Status [ADT] Routine ADT 11/12/19 08:02 Active Bedrest Bathroom Privileges [RC] ASDIRECTED Care 11/12/19 08:09 Active Communication Order [RC] ASDIRECTED Care 11/12/19 08:09 Active Communication Order [RC] ASDIRECTED Care 11/12/19 08:09 Active Heart Tones [RC] CONTINUOUS Care 11/12/19 08:02 Active Non Stress Test [RC] PER UNIT ROUTINE Care 11/12/19 08:02 Active May Shower [RC] ASDIRECTED Care 11/12/19 08:02 Active Notify Provider [RC] PRN Care 11/12/19 08:02 Active Notify Provider [RC] PRN Care 11/12/19 08:09 Active Notify Provider [RC] STAT Care 11/12/19 08:09 Active Oxygen Therapy [RC] ASDIRECTED Care 11/12/19 08:09 Active Up ad Tory [RC] ASDIRECTED Care 11/12/19 08:02 Active Vaginal Exam [RC] PRN Care 11/12/19 08:02 Active Vaginal Exam [RC] PRN Care 11/12/19 08:09 Active Vital Signs [RC] PER UNIT ROUTINE Care 11/12/19 08:02 Active Vital Signs [RC] PER UNIT ROUTINE Care 11/12/19 08:09 Active Regular Diet [DIET] Diet 11/12/19 Breakfast Active CBC W/O DIFF,HEMOGRAM [HEME] Routine Lab 11/12/19 08:25 Received RPR (SYPHILIS SERO) W/ RFLX [REF] Routine Lab 11/12/19 08:25 Received TYPE AND SCREEN [BBK] Routine Lab 11/12/19 08:25 Received Carboprost Tromethamine [Hemabate DS] Med 11/12/19 08:02 Active 250 mcg IM ASDIRECTED PRN Lactated Ringers [Ringers, Lactated] 1,000 ml Med 11/12/19 08:15 Active IV ASDIRECTED Lidocaine 1% [Xylocaine 1%] Med 11/12/19 08:02 Active 50 ml INJECT ONETIME PRN Methylergonovine [Methergine] Med 11/12/19 08:02 Active 0.2 mg IM ASDIRECTED PRN Nalbuphine [Nubain] Med 11/12/19 08:02 Active 10 mg IVPUSH Q1H PRN Ondansetron [Zofran] Med 11/12/19 08:02 Active 4 mg IVPUSH Q6H PRN Oxytocin/0.9 % Sodium Chloride [Oxytocin 30 Unit/500 ML Med 11/12/19 08:15 Active -NS] 30 unit in 500 ml IV TITRATE Oxytocin/0.9 % Sodium Chloride [Oxytocin 30 Unit/500 ML Med 11/12/19 08:15 Active -NS] 30 unit in 500 ml IV TITRATE Sodium Chloride 0.9% [Normal Saline] Med 11/12/19 08:02 Active 10 ml IV ASDIRECTED PRN Sodium Chloride 0.9% [Saline Flush] Med 11/12/19 08:02 Active 10 ml FLUSH ASDIRECTED PRN Sodium Chloride 0.9% [Saline Flush] Med 11/12/19 08:02 Active 2.5 ml FLUSH ASDIRECTED PRN Terbutaline [Brethine] Med 11/12/19 08:09 Active 0.25 mg SUBCUT ASDIRECTED PRN Tranexamic Acid [Cyklokapron] 1,000 mg Med 11/12/19 08:02 Active Sodium Chloride 0.9% [Normal Saline] 100 ml IV ONETIME Water For Irrigation,Sterile [Sterile Water for Med 11/12/19 08:02 Active Irrigation] 1,000 ml IRR ASDIRECTED PRN miSOPROStoL [Cytotec] Med 11/12/19 08:02 Active 200 mcg PO ONETIME PRN Scalp Electrode [WOMSER] Per Unit Routine Oth 11/12/19 08:02 Ordered Medication Administration Instruction [OM.PC] Q3H Oth 11/12/19 08:15 Ordered Peripheral IV Insertion Adult [OM.PC] Routine Oth 11/12/19 08:02 Ordered Resuscitation Status Routine Resus Stat 11/12/19 08:02 Ordered Medication Orders Carboprost Tromethamine (Hemabate Ds) 250 mcg IM ASDIRECTED PRN PRN Reason: Post Hemorrhage Lactated Ringer's (Ringers, Lactated) 1,000 mls @ 150 mls/hr IV ASDIRECTED [facility] Oxytocin/Sodium Chloride (Oxytocin 30 Unit/500 Ml-Ns) 30 unit in 500 mls @ 999 mls/hr IV TITRATE [facility] Tranexamic Acid 1,000 mg/ (Sodium Chloride) 110 mls @ 660 mls/hr IV ONETIME PRN PRN Reason: Bleeding Oxytocin/Sodium Chloride (Oxytocin 30 Unit/500 Ml-Ns) 30 unit in 500 mls @ 2 mls/hr IV TITRATE [facility]; Protocol Lidocaine HCl (Xylocaine 1%) 50 ml INJECT ONETIME PRN PRN Reason: Laceration repair Methylergonovine Maleate (Methergine) 0.2 mg IM ASDIRECTED PRN PRN Reason: Post Hemorrhage Misoprostol (Cytotec) 200 mcg PO ONETIME PRN PRN Reason: Post Hemorrhage Nalbuphine HCl (Nubain) 10 mg IVPUSH Q1H PRN PRN Reason: Pain (severe 7-10) Ondansetron HCl (Zofran) 4 mg IVPUSH Q6H PRN PRN Reason: Nausea/Vomiting Sodium Chloride (Saline Flush) 10 ml FLUSH ASDIRECTED PRN PRN Reason: Keep Vein Open Sodium Chloride (Saline Flush) 2.5 ml FLUSH ASDIRECTED PRN PRN Reason: Keep Vein Open Sodium Chloride (Normal Saline) 10 ml IV ASDIRECTED PRN PRN Reason: IV Use Sterile Water (Sterile Water For Irrigation) 1,000 ml IRR ASDIRECTED PRN PRN Reason: delivery Terbutaline Sulfate (Brethine) 0.25 mg SUBCUT ASDIRECTED PRN PRN Reason: Tacysystole Assessment/Plan Comment:: Admit A: 24 yo presenting for IOL at 39 weeks, Rubella immune, O+, GBS negative, 3/70%/-2, soft, midposition P: Admit, anticipate , Dr. Resendiz updated
[2019-11-12] MEDS: Lactated Ringers 1,000 ML IV SCH ×2 (09:52→12:16)
[2019-11-12] MEDS ORDERED: fentaNYL 100 MCG/2 ML SDV ONE (12:25)
[2019-11-12] MEDS ORDERED: Ropivacaine 0.2% PF 2 MG/ML 20 ML SDV ONE (12:25)
[2019-11-12] MEDS ORDERED: Ropivacaine HCl/PF 100 ML ONE (12:25)
--- NOTE | 2019-11-12 13:10 | PCM.PREANE ---
Preanesthetic Assessment - Procedure Proposed Procedure: JULIETA - Anesthesia/Transfusion/Family Hx Anesthesia History: Prior Anesthesia Without Reaction Family History of Anesthesia Reaction: No Transfusion History: No Prior Transfusion(s) Type of Transfusion Reactions: Reports: Unknown Intubation History: Intubation other than for Surgery in past - Review of Systems General: No Symptoms Pulmonary: No Symptoms Cardiovascular: No Symptoms Gastrointestinal: No Symptoms Neurological: No Symptoms Other: Reports: None - Physical Assessment NPO Status Date: 11/12/19 NPO Status Time: 12:00 (clear liquids) Height: 1.63 m Weight: 87.09 kg ASA Class: 2 Mental Status: Alert & Oriented x3 Airway Class: Mallampati = 1 Dentition: Reports: Normal Dentition Thyro-Mental Finger Breadths: 3 Mouth Opening Finger Breadths: 3 ROM/Head Extension: Full Lungs: Clear to Auscultation Cardiovascular: Regular Rate - Lab Values: Laboratory Last Values WBC 8.67 K/uL (4.0-11.0) 11/12/19 08:25 RBC 4.00 M/uL (4.30-5.90) L 11/12/19 08:25 Hgb 11.1 g/dL (12.0-16.0) L 11/12/19 08:25 Hct 34.8 % (36.0-46.0) L 11/12/19 08:25 MCV 87.0 fL (80.0-98.0) 11/12/19 08:25 MCH 27.8 pg (27.0-32.0) 11/12/19 08:25 MCHC 31.9 g/dL (31.0-37.0) 11/12/19 08:25 RDW Std Deviation 45.0 fl (28.0-62.0) 11/12/19 08:25 RDW Coeff of Neftaly 14 % (11.0-15.0) 11/12/19 08:25 Plt Count 258 K/uL (150-400) 11/12/19 08:25 MPV 9.80 fL (7.40-12.00) 11/12/19 08:25 Nucleated RBC % 0.0 /100WBC 11/12/19 08:25 Nucleated RBCs # 0 K/uL 11/12/19 08:25 Blood Type O POSITIVE 11/12/19 08:25 Antibody Screen NEGATIVE 11/12/19 08:25 - Allergies Allergies/Adverse Reactions: Allergies Allergy/AdvReac Type Severity Reaction Status Date / Time No Known Allergies Allergy Verified 11/04/19 03:15 - Blood Blood Available: No Product(s) Available: None - Anesthesia Plan Pre-Op Medication Ordered: None - Acknowledgements Anesthesia Type Planned: Epidural Pt an Appropriate Candidate for the Planned Anesthesia: Yes Alternatives and Risks of Anesthesia Discussed w Pt/Guardian: Yes Pt/Guardian Understands and Agrees with Anesthesia Plan: Yes Additional Comments: Discussed. ?answered. Permit signed. wishes to proceed. . 4+ cm active labor. 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: Musculoskeletal History: Reports: None Other Musculoskeletal History: History of hip dysplasia as verbalized by patient ,no surgical intervention, on braces when she was a kid Neurological History: Reports: None Psychiatric History: Reports: None Endocrine/Metabolic History: Reports: None Hematologic History: Reports: Other (See Below) Other Hematologic History: easy bruising/bleeding Immunologic History: Reports: None Oncologic (Cancer) History: Reports: None Dermatologic History: Reports: None - Infectious Disease History Infectious Disease History: Reports: None - Past Surgical History Head Surgeries/Procedures: Reports: None Female Surgical History: Reports: None - SUBSTANCE USE Smoking Status *Q: Former Smoker Tobacco Use Within Last Twelve Months: Cigarettes Second Hand Smoke Exposure: No Recreational Drug Use History: No - HOME MEDS Home Medications: Home Meds . [No Known Home Meds] 06/24/18 [History] - CURRENT (IN HOUSE) MEDS Current Meds: Current Medications Carboprost Tromethamine (Hemabate Ds) 250 mcg IM ASDIRECTED PRN PRN Reason: Post Hemorrhage Lactated Ringer's (Ringers, Lactated) 1,000 mls @ 150 mls/hr IV ASDIRECTED [facility] Last Admin: 11/12/19 12:16 Dose: 999 mls/hr Oxytocin/Sodium Chloride (Oxytocin 30 Unit/500 Ml-Ns) 30 unit in 500 mls @ 999 mls/hr IV TITRATE [facility] Tranexamic Acid 1,000 mg/ (Sodium Chloride) 110 mls @ 660 mls/hr IV ONETIME PRN PRN Reason: Bleeding Oxytocin/Sodium Chloride (Oxytocin 30 Unit/500 Ml-Ns) 30 unit in 500 mls @ 2 mls/hr IV TITRATE [facility]; Protocol Lidocaine HCl (Xylocaine 1%) 50 ml INJECT ONETIME PRN PRN Reason: Laceration repair Methylergonovine Maleate (Methergine) 0.2 mg IM ASDIRECTED PRN PRN Reason: Post Hemorrhage Misoprostol (Cytotec) 200 mcg PO ONETIME PRN PRN Reason: Post Hemorrhage Nalbuphine HCl (Nubain) 10 mg IVPUSH Q1H PRN PRN Reason: Pain (severe 7-10) Ondansetron HCl (Zofran) 4 mg IVPUSH Q6H PRN PRN Reason: Nausea/Vomiting Sodium Chloride (Saline Flush) 10 ml FLUSH ASDIRECTED PRN PRN Reason: Keep Vein Open Sodium Chloride (Saline Flush) 2.5 ml FLUSH ASDIRECTED PRN PRN Reason: Keep Vein Open Sodium Chloride (Normal Saline) 10 ml IV ASDIRECTED PRN PRN Reason: IV Use Sterile Water (Sterile Water For Irrigation) 1,000 ml IRR ASDIRECTED PRN PRN Reason: delivery Terbutaline Sulfate (Brethine) 0.25 mg SUBCUT ASDIRECTED PRN PRN Reason: Tacysystole Discontinued Medications Fentanyl (Sublimaze) Confirm Administered Dose 100 mcg .ROUTE .STK-MED ONE Stop: 11/12/19 12:26 Ropivacaine (Naropin 0.2%) Confirm Administered Dose 100 mls @ as directed .ROUTE .STK-MED ONE Stop: 11/12/19 12:26 Ropivacaine (Naropin 0.2%) Confirm Administered Dose 20 ml .ROUTE .STK-MED ONE Stop: 11/12/19 12:26
--- NOTE | 2019-11-12 13:13 | PCM.SN ---
- Free Text/Narrative Note: Requested for JULIETA. Procedure without issues. Excellent analgesia. See Anesthesia record.
--- NOTE | 2019-11-12 13:35 | PCM.DEL ---
L & D Note - General Info Date of Service: 11/12/19 Mother's Due Date: 11/19/19 - Delivery Note Labor: Induced by ARM Delivery Outcome: Livebirth Delivery Method: Spontaneous Vaginal Delivery-Single Presentation: Vertex Nuchal Cord: Present (x1), Reduced Anesthesia Type: Epidural Amniotic Fluid Description: Clear Episiotomy Type: None Laceration: None Placenta: Intact, Spontaneous Cord: 3 Vessels Estimated Blood Loss: 300 Resuscitation Needed: No Score 1 min: 8 Score 5 min: 9 Second Stage Interventions: Reports: Second Nurse Assessed Progress of Descent, Second Nurse Reviewed Contraction Pattern, Encouragement Given, Pushing Effectively Delivery Comments (Free Text/Narrative):: viable infant female, head delivered with good pushing, shoulders and body followed easily after, nuchal x1 summersaulted through, baby to mom's abdomen for skin to skin, APGARS 8/9, cord clamped after cessation of pulsing, cut by FOB, placenta delivered grossly intact, 3VC, EBL 300 mL, intact perineum, pitocin to IVF, mom and baby left in stable condition with nurse at bedside for assessment - General Info Date of Service: 11/12/19 Admission Dx/Problem (Free Text): Patient Status Order with Admit Dx/Problem 11/12/19 08:02 Patient Status [ADT] Routine Admission Diagnosis/Problem Admission Diagnosis/Problem 11/12/19 08:39 24 yo presenting for IOL at 39 weeks, O+, Rubella immune, GBS negative, EDC 11/19/19 Functional Status: Reports: Pain Controlled - Review of Systems General: Reports: No Symptoms HEENT: Reports: No Symptoms Pulmonary: Reports: No Symptoms Cardiovascular: Reports: No Symptoms Gastrointestinal: Reports: No Symptoms Genitourinary: Reports: No Symptoms Musculoskeletal: Reports: No Symptoms Skin: Reports: No Symptoms Neurological: Reports: No Symptoms Psychiatric: Reports: No Symptoms - Patient Data Weight - Most Recent: 192 lb Lab Results Last 24 Hours: Laboratory Results - last 24 hr 11/12/19 11/12/19 Range/Units 08:25 08:25 WBC 8.67 (4.0-11.0) K/uL RBC 4.00 L (4.30-5.90) M/uL Hgb 11.1 L (12.0-16.0) g/dL Hct 34.8 L (36.0-46.0) % MCV 87.0 (80.0-98.0) fL MCH 27.8 (27.0-32.0) pg MCHC 31.9 (31.0-37.0) g/dL RDW Std Deviation 45.0 (28.0-62.0) fl RDW Coeff of Neftaly 14 (11.0-15.0) % Plt Count 258 (150-400) K/uL MPV 9.80 (7.40-12.00) fL Nucleated RBC % 0.0 /100WBC Nucleated RBCs # 0 K/uL Blood Type O POSITIVE Antibody Screen NEGATIVE Med Orders - Current: Current Medications Carboprost Tromethamine (Hemabate Ds) 250 mcg IM ASDIRECTED PRN PRN Reason: Post Hemorrhage Lactated Ringer's (Ringers, Lactated) 1,000 mls @ 150 mls/hr IV ASDIRECTED [facility] Last Admin: 11/12/19 12:16 Dose: 999 mls/hr Oxytocin/Sodium Chloride (Oxytocin 30 Unit/500 Ml-Ns) 30 unit in 500 mls @ 999 mls/hr IV TITRATE [facility] Last Admin: 11/12/19 13:12 Dose: 999 mls/hr Tranexamic Acid 1,000 mg/ (Sodium Chloride) 110 mls @ 660 mls/hr IV ONETIME PRN PRN Reason: Bleeding Oxytocin/Sodium Chloride (Oxytocin 30 Unit/500 Ml-Ns) 30 unit in 500 mls @ 2 mls/hr IV TITRATE [facility]; Protocol Lidocaine HCl (Xylocaine 1%) 50 ml INJECT ONETIME PRN PRN Reason: Laceration repair Methylergonovine Maleate (Methergine) 0.2 mg IM ASDIRECTED PRN PRN Reason: Post Hemorrhage Misoprostol (Cytotec) 200 mcg PO ONETIME PRN PRN Reason: Post Hemorrhage Nalbuphine HCl (Nubain) 10 mg IVPUSH Q1H PRN PRN Reason: Pain (severe 7-10) Ondansetron HCl (Zofran) 4 mg IVPUSH Q6H PRN PRN Reason: Nausea/Vomiting Sodium Chloride (Saline Flush) 10 ml FLUSH ASDIRECTED PRN PRN Reason: Keep Vein Open Sodium Chloride (Saline Flush) 2.5 ml FLUSH ASDIRECTED PRN PRN Reason: Keep Vein Open Sodium Chloride (Normal Saline) 10 ml IV ASDIRECTED PRN PRN Reason: IV Use Sterile Water (Sterile Water For Irrigation) 1,000 ml IRR ASDIRECTED PRN PRN Reason: delivery Last Admin: 11/12/19 13:28 Dose: 1,000 ml Terbutaline Sulfate (Brethine) 0.25 mg SUBCUT ASDIRECTED PRN PRN Reason: Tacysystole Discontinued Medications Fentanyl (Sublimaze) Confirm Administered Dose 100 mcg .ROUTE .STK-MED ONE Stop: 11/12/19 12:26 Ropivacaine (Naropin 0.2%) Confirm Administered Dose 100 mls @ as directed .ROUTE .STK-MED ONE Stop: 11/12/19 12:26 Ropivacaine (Naropin 0.2%) Confirm Administered Dose 20 ml .ROUTE .STK-MED ONE Stop: 11/12/19 12:26 - Exam General: Alert, Oriented, Cooperative, No Acute Distress Lungs: Normal Respiratory Effort GI/Abdominal Exam: Soft, Non-Tender (Female) Exam: Normal External Exam Back Exam: Normal Inspection Extremities: Normal Inspection Skin: Warm, Dry, Intact Neurological: No New Focal Deficit, Normal Speech, Normal Tone Psy/Mental Status: Alert, Normal Affect, Normal Mood - Problem List & Annotations (1) Supervision of normal IUP (intrauterine ) in multigravida SNOMED Code(s): 665692922, 896558716, 833009683 Code(s): Z34.80 - ENCOUNTER FOR SUPRVSN OF NORMAL , UNSP TRIMESTER Status: Acute Priority: High Current Visit: Yes Qualifiers: Trimester: third trimester Qualified Code(s): Z34.83 - Encounter for supervision of other normal , third trimester (2) (normal spontaneous vaginal delivery) SNOMED Code(s): 77780232, 347723863 Code(s): O80 - ENCOUNTER FOR FULL-TERM UNCOMPLICATED DELIVERY Status: Acute Priority: High Current Visit: Yes - Problem List Review Problem List Initiated/Reviewed/Updated: Yes - Plan Plan:: Admit A: 24 yo presenting for IOL at 39 weeks, Rubella immune, O+, GBS negative, 3/70%/-2, soft, midposition P: Admit, anticipate , Dr. Resendiz updated Delivery A: viable female, nuchal x1 summersaulted through, APGARS 8/9, placenta delivered grossly intact, 3VC, EBL 300 mL, intact perineum, pitocin to IVF, mom and baby left in stable condition with nurse at bedside for assessment P: Routine plan of care. Dr. Resendiz updated.
[2019-11-12] MEDS ORDERED: Benzocaine/Menthol 20%-0.5% Spray 78 GM Cannister TOP PRN (13:39)
[2019-11-12] MEDS ORDERED: Bisacodyl 10 MG Supp RECTAL PRN (13:39)
[2019-11-12] MEDS ORDERED: oxyCODONE 5 MG Tab PO PRN (13:39)
[2019-11-12] MEDS ORDERED: Ibuprofen 400 MG Tab PO PRN (13:39)
[2019-11-12] MEDS ORDERED: Acetaminophen 500 MG Tab PO PRN (13:39)
[2019-11-12] MEDS ORDERED: Docusate Sodium 100 MG Cap PO PRN (13:39)
[2019-11-12] MEDS ORDERED: Lanolin 100% Cream 7 GM Tube TOP PRN (13:39)
[2019-11-12] MEDS ORDERED: Witch Hazel Medicated Pads 40/Jar TOP PRN (13:39)
[2019-11-12] MEDS: Acetaminophen 500 MG Tab PO PRN (18:57)
[2019-11-13] MEDS: Ibuprofen 800 MG Tab PO PRN ×2 (00:04→07:27)
[2019-11-13] MEDS: Acetaminophen 500 MG Tab PO PRN (00:05)
[2019-11-13 07:47] VITALS: BP 121/87; PULSE 60
--- NOTE | 2019-11-13 09:04 | PCM.DCSUM1 ---
Discharge Summary - Hospital Course Free Text/Narrative:: Discharge home with baby. Follow up in 6 weeks for exam Diagnosis: Stroke: No Modified Latisha Scale: No Symptoms at All Modified Pasco Scale Score: 0 - Discharge Data Discharge Date: 11/13/19 Discharge Disposition: Home, Self-Care 01 Condition: Good - Referral to Home Health Primary Care Physician: PCP None - Discharge Diagnosis/Problem(s) (1) Supervision of normal IUP (intrauterine ) in multigravida SNOMED Code(s): 506850298, 682178332, 062187314 ICD Code: Z34.80 - ENCOUNTER FOR SUPRVSN OF NORMAL , UNSP TRIMESTER Status: Acute Priority: High Current Visit: Yes Qualifiers: Trimester: third trimester Qualified Code(s): Z34.83 - Encounter for supervision of other normal , third trimester (2) (normal spontaneous vaginal delivery) SNOMED Code(s): 90830409, 121691587 ICD Code: O80 - ENCOUNTER FOR FULL-TERM UNCOMPLICATED DELIVERY Status: Acute Priority: High Current Visit: Yes - Patient Instructions Diet: Regular Diet as Tolerated, Drink 8-10+ Glasses/Day Activity: As Tolerated, No Strenuous Activities, Rest and Relax Today Driving: May Drive Today Showering/Bathing: May Shower Notify Provider of: Fever, Increased Pain, Swelling and Redness, Drainage, Nausea and/or Vomiting - Discharge Plan *PRESCRIPTION DRUG MONITORING PROGRAM REVIEWED*: Not Applicable *COPY OF PRESCRIPTION DRUG MONITORING REPORT IN PATIENT GEORGINA: Not Applicable Prescriptions/Med Rec: Ibuprofen [Motrin] 800 mg PO Q6H PRN #90 tablet PRN Reason: Pain Home Medications: Home Meds Ibuprofen [Motrin] 800 mg PO Q6H PRN #90 tablet 11/13/19 [Rx] Oxygen Therapy Mode: Room Air Referrals: [facility] [Outside] Rafia Vargas, CRISPIN, SOLAR INSTALLER TECHNICIAN [Mid-] - 12/24/19 3:00 pm (Post appointment December 23 at 3:00 pm with Rafia) - Discharge Summary/Plan Comment DC Time >30 min.: Yes - Patient Data Vitals - Most Recent: Last Vital Signs Temp 97.5 F 11/13/19 07:40 Pulse 60 11/13/19 07:40 Resp 16 11/13/19 07:40 BP 121/87 11/13/19 07:40 Pulse Ox 97 11/13/19 07:40 Weight - Most Recent: 192 lb Lab Results - Last 24 hrs: Laboratory Results - last 24 hr 11/12/19 11/13/19 Range/Units 08:25 05:58 Hgb 9.9 L (12.0-16.0) g/dL Hct 30.7 L (36.0-46.0) % Blood Type O POSITIVE Antibody Screen NEGATIVE Med Orders - Current: Current Medications Acetaminophen (Tylenol Extra Strength) 500 mg PO Q4H PRN PRN Reason: Pain Acetaminophen (Tylenol Extra Strength) 1,000 mg PO Q4H PRN PRN Reason: Pain Last Admin: 11/13/19 00:05 Dose: 1,000 mg Benzocaine/Menthol (Dermoplast Pain Relief 20%-0.5% Worth) 78 gm TOP ASDIRECTED PRN PRN Reason: Perineal Comfort Measure Bisacodyl (Dulcolax) 10 mg RECTAL ONETIME PRN PRN Reason: Constipation Docusate Sodium (Colace) 100 mg PO BID PRN PRN Reason: Constipation Emollient Ointment (Lansinoh Hpa) 0 gm TOP ASDIRECTED PRN PRN Reason: Sore Nipples Ibuprofen (Motrin) 400 mg PO Q4H PRN PRN Reason: Pain Ibuprofen (Motrin) 800 mg PO Q6H PRN PRN Reason: Pain Last Admin: 11/13/19 07:27 Dose: 800 mg Oxycodone HCl (Oxycodone) 5 mg PO Q2H PRN PRN Reason: Pain Witch Terri (Tucks) 1 pad TOP ASDIRECTED PRN PRN Reason: comfort care Discontinued Medications Carboprost Tromethamine (Hemabate Ds) 250 mcg IM ASDIRECTED PRN PRN Reason: Post Hemorrhage Fentanyl (Sublimaze) Confirm Administered Dose 100 mcg .ROUTE .STK-MED ONE Stop: 11/12/19 12:26 Lactated Ringer's (Ringers, Lactated) 1,000 mls @ 150 mls/hr IV ASDIRECTED [facility] Last Infusion: 11/12/19 13:09 Dose: 0 mls/hr Oxytocin/Sodium Chloride (Oxytocin 30 Unit/500 Ml-Ns) 30 unit in 500 mls @ 999 mls/hr IV TITRATE [facility] Last Admin: 11/12/19 13:09 Dose: 999 mls/hr Tranexamic Acid 1,000 mg/ (Sodium Chloride) 110 mls @ 660 mls/hr IV ONETIME PRN PRN Reason: Bleeding Oxytocin/Sodium Chloride (Oxytocin 30 Unit/500 Ml-Ns) 30 unit in 500 mls @ 2 mls/hr IV TITRATE [facility]; Protocol Ropivacaine (Naropin 0.2%) Confirm Administered Dose 100 mls @ as directed .ROUTE .[employer] ONE Stop: 11/12/19 12:26 Lidocaine HCl (Xylocaine 1%) 50 ml INJECT ONETIME PRN PRN Reason: Laceration repair Methylergonovine Maleate (Methergine) 0.2 mg IM ASDIRECTED PRN PRN Reason: Post Hemorrhage Misoprostol (Cytotec) 200 mcg PO ONETIME PRN PRN Reason: Post Hemorrhage Nalbuphine HCl (Nubain) 10 mg IVPUSH Q1H PRN PRN Reason: Pain (severe 7-10) Ondansetron HCl (Zofran) 4 mg IVPUSH Q6H PRN PRN Reason: Nausea/Vomiting Ropivacaine (Naropin 0.2%) Confirm Administered Dose 20 ml .ROUTE .[employer] ONE Stop: 11/12/19 12:26 Sodium Chloride (Saline Flush) 10 ml FLUSH ASDIRECTED PRN PRN Reason: Keep Vein Open Sodium Chloride (Saline Flush) 2.5 ml FLUSH ASDIRECTED PRN PRN Reason: Keep Vein Open Sodium Chloride (Normal Saline) 10 ml IV ASDIRECTED PRN PRN Reason: IV Use Sterile Water (Sterile Water For Irrigation) 1,000 ml IRR ASDIRECTED PRN PRN Reason: delivery Last Admin: 11/12/19 13:28 Dose: 1,000 ml Terbutaline Sulfate (Brethine) 0.25 mg SUBCUT ASDIRECTED PRN PRN Reason: Tacysystole
--- NOTE | 2019-11-13 10:56 | PCM48HPAN ---
Post Anesthesia Note - EVALUATION WITHIN 48HRS OF ANESTHETIC Vital Signs in Normal Range: Yes Patient Participated in Evaluation: Yes Respiratory Function Stable: Yes Airway Patent: Yes Cardiovascular Function Stable: Yes Hydration Status Stable: Yes Pain Control Satisfactory: Yes Nausea and Vomiting Control Satisfactory: Yes Mental Status Recovered: Yes Vital Signs: Last Vital Signs Temp 36.4 C 11/13/19 07:40 Pulse 60 11/13/19 07:40 Resp 16 11/13/19 07:40 BP 121/87 11/13/19 07:40 Pulse Ox 97 11/13/19 07:40 - COMMENTS/OBSERVATIONS Free Text/Narrative:: Doing well. No problems post.
== END 2019-11-13 15:45 | disposition home or self-care (01) | DRG 807 ==
LOC: MW.OBCHECK 07:10 → MW.OB 07:12 → OBSVTOIN 13:09 → MW.OBCHECK 13:13 → MW.OB 16:43
PROVIDERS: ADMIT Obstetrics & Gynecology; ATTEND Obstetrics & Gynecology
PROC: 10E0XZZ Delivery of Products of Conception, External Approach (ICD-10-PCS; principal; 2019-11-12)
PROC: 10907ZC Drainage of Amniotic Fluid, Therapeutic from Products of Conception, Via Natural or Artificial Opening (ICD-10-PCS; 2019-11-12)
PROC: 3E0R3BZ Introduction of Anesthetic Agent into Spinal Canal, Percutaneous Approach (ICD-10-PCS; 2019-11-12)
DX: O69.81X0 Labor and delivery complicated by cord around neck, without compression, not applicable or unspecified (principal); Z37.0 Single live birth; Z3A.39 39 weeks gestation of pregnancy; Z87.891 Personal history of nicotine dependence; Z79.899 Other long term (current) drug therapy
CPT/HCPCS: 36415; 59025; 59409; 85014; 85018; 85027; 86592; 86850; 86900; 86901; A9270-GY; J2590; J2795; J3010; J7120

== ENCOUNTER 2020-12-29 23:18 | Inpatient (IN) | payer MEDICAID ==
[2020-12-30] MEDS ORDERED: Sodium Chloride 0.9% 2.5 ML Syringe FLUSH PRN (01:34)
[2020-12-30] MEDS ORDERED: Sodium Chloride 0.9% 10 ML SDV IV PRN (01:34)
[2020-12-30] MEDS ORDERED: Lidocaine 1% 50 ML MDV INJECT PRN (01:34)
[2020-12-30] MEDS ORDERED: Carboprost Tromethamine 250 MCG/1 ML Amp IM PRN (01:34)
[2020-12-30] MEDS ORDERED: Tranexamic Acid 1,000 MG in Sodium Chloride 0.9% 100 ML IV PRN (01:34)
[2020-12-30] MEDS ORDERED: Butorphanol 1 MG/ML SDV IVPUSH PRN (01:34)
[2020-12-30] MEDS ORDERED: Methylergonovine 0.2 MG/1 ML Amp IM PRN (01:34)
[2020-12-30] MEDS ORDERED: Water For Irrigation,Sterile 1,000 ML Container IRR PRN (01:34)
[2020-12-30] MEDS ORDERED: Nalbuphine 10 MG/1 ML Vial IVPUSH PRN (01:34)
[2020-12-30] MEDS ORDERED: Sodium Chloride 0.9% 10 ML Syringe FLUSH PRN (01:34)
[2020-12-30] MEDS ORDERED: Misoprostol 200 MCG Tab PO PRN (01:34)
[2020-12-30] MEDS ORDERED: Oxytocin/0.9 % Sodium Chloride 30 UNIT/500 ML BAG IV SCH ×2 (01:45→05:15)
[2020-12-30] MEDS ORDERED: Ampicillin 2 GM in Sodium Chloride 0.9% 100 ML IV ONE (02:00)
[2020-12-30] MEDS: Lactated Ringers 1,000 ML IV SCH ×3 (02:47→05:58)
[2020-12-30] MEDS ORDERED: Ropivacaine HCl/PF 100 ML ONE (04:02)
[2020-12-30] MEDS ORDERED: fentaNYL 100 MCG/2 ML SDV ONE (04:02)
--- NOTE | 2020-12-30 04:32 | PCM.PREANE ---
Preanesthetic Assessment - Anesthesia/Transfusion/Family Hx Anesthesia History: Prior Anesthesia Without Reaction Family History of Anesthesia Reaction: No Transfusion History: No Prior Transfusion(s) Type of Transfusion Reactions: Reports: Unknown Intubation History: Intubation other than for Surgery in past - Physical Assessment NPO Status Date: 12/30/20 NPO Status Time: 00:05 Height: 1.63 m Weight: 90.718 kg ASA Class: 2 - Lab Values: Laboratory Last Values WBC 11.94 K/uL (4.0-11.0) H 12/30/20 02:05 RBC 4.27 M/uL (4.30-5.90) L 12/30/20 02:05 Hgb 11.3 g/dL (12.0-16.0) L 12/30/20 02:05 Hct 36.2 % (36.0-46.0) 12/30/20 02:05 MCV 84.8 fL (80.0-98.0) 12/30/20 02:05 MCH 26.5 pg (27.0-32.0) L 12/30/20 02:05 MCHC 31.2 g/dL (31.0-37.0) 12/30/20 02:05 RDW Std Deviation 47.3 fl (28.0-62.0) 12/30/20 02:05 RDW Coeff of Neftaly 15 % (11.0-15.0) 12/30/20 02:05 Plt Count 264 K/uL (150-400) 12/30/20 02:05 MPV 10.70 fL (7.40-12.00) 12/30/20 02:05 Nucleated RBC % 0.0 /100WBC 12/30/20 02:05 Nucleated RBCs # 0 K/uL 12/30/20 02:05 SARS-CoV-2 RNA (FRANNY) NEGATIVE (NEGATIVE) 12/30/20 01:30 Blood Type O POSITIVE 12/30/20 02:05 Antibody Screen NEGATIVE 12/30/20 02:05 - Allergies Allergies/Adverse Reactions: Allergies Allergy/AdvReac Type Severity Reaction Status Date / Time No Known Allergies Allergy Verified 12/30/20 01:34 - Acknowledgements Anesthesia Type Planned: Epidural Pt an Appropriate Candidate for the Planned Anesthesia: Yes Alternatives and Risks of Anesthesia Discussed w Pt/Guardian: Yes Pt/Guardian Understands and Agrees with Anesthesia Plan: Yes PreAnesthesia Questionnaire - Past Health History Medical/Surgical History: Denies Medical/Surgical History HEENT History: Reports: None Cardiovascular History: Reports: None Respiratory History: Reports: None Gastrointestinal History: Reports: None Genitourinary History: Reports: None C[employer] PAYMENTS RECEIVED History: Reports: Musculoskeletal History: Reports: None Other Musculoskeletal History: History of hip dysplasia as verbalized by patient,no surgical intervention, on braces when she was a kid Neurological History: Reports: None Psychiatric History: Reports: None Endocrine/Metabolic History: Reports: None Hematologic History: Reports: Other (See Below) Other Hematologic History: easy bruising/bleeding Immunologic History: Reports: None Oncologic (Cancer) History: Reports: None Dermatologic History: Reports: None - Infectious Disease History Infectious Disease History: Reports: None - Past Surgical History Head Surgeries/Procedures: Reports: None Female Surgical History: Reports: None - HOME MEDS Home Medications: Home Meds Meclizine [Antivert] 1 tab PO PRN 12/29/20 [History] Ondansetron [Zofran ODT] 1 tab PO PRN 12/29/20 [History] - CURRENT (IN HOUSE) MEDS Current Meds: Current Medications Butorphanol Tartrate (Butorphanol 1 Mg/Ml Sdv) 1 mg IVPUSH Q1H PRN PRN Reason: Pain Carboprost Tromethamine (Carboprost Tromethamine 250 Mcg/1 Ml Amp) 250 mcg IM ASDIRECTED PRN PRN Reason: Post Hemorrhage Lactated Ringer's (Ringers, Lactated) 1,000 mls @ 150 mls/hr IV ASDIRECTED [facility] Last Admin: 12/30/20 02:47 Dose: 150 mls/hr Documented by: Oxytocin/Sodium Chloride (Oxytocin 30 Unit/500 Ml-Ns) 30 unit in 500 mls @ 500 mls/hr IV TITRATE [facility] Tranexamic Acid 1,000 mg/ (Sodium Chloride) 110 mls @ 660 mls/hr IV ONETIME PRN PRN Reason: Bleeding Ampicillin Sodium 1 gm/ Sodium (Chloride) 50 mls @ 100 mls/hr IV Q4H [facility] Lidocaine HCl (Lidocaine 1% 50 Ml Mdv) 50 ml INJECT ONETIME PRN PRN Reason: Laceration repair Methylergonovine Maleate (Methylergonovine 0.2 Mg/1 Ml Amp) 0.2 mg IM ASDIRECTED PRN PRN Reason: Post Hemorrhage Misoprostol (Misoprostol 200 Mcg Tab) 200 mcg PO ONETIME PRN PRN Reason: Post Hemorrhage Nalbuphine HCl (Nalbuphine 10 Mg/1 Ml Vial) 10 mg IVPUSH Q1H PRN PRN Reason: Pain (severe 7-10) Sodium Chloride (Sodium Chloride 0.9% 10 Ml Syringe) 10 ml FLUSH ASDIRECTED PRN PRN Reason: Keep Vein Open Sodium Chloride (Sodium Chloride 0.9% 2.5 Ml Syringe) 2.5 ml FLUSH ASDIRECTED PRN PRN Reason: Keep Vein Open Sodium Chloride (Sodium Chloride 0.9% 10 Ml Sdv) 10 ml IV ASDIRECTED PRN PRN Reason: IV Use Sterile Water (Water For Irrigation,Sterile 1,000 Ml Container) 1,000 ml IRR ASDIRECTED PRN PRN Reason: delivery Discontinued Medications Fentanyl (Fentanyl 100 Mcg/2 Ml Sdv) Confirm Administered Dose 100 mcg .ROUTE .STK-MED ONE Stop: 12/30/20 04:03 Ampicillin Sodium 2 gm/ Sodium (Chloride) 100 mls @ 200 mls/hr IV ONETIME ONE Stop: 12/30/20 02:29 Last Admin: 12/30/20 02:55 Dose: 200 mls/hr Documented by: Ropivacaine (Naropin 0.2%) Confirm Administered Dose 100 mls @ as directed .ROUTE .STK-MED ONE Stop: 12/30/20 04:03
--- NOTE | 2020-12-30 04:36 | PCM.PRNOTE ---
- Free Text/Narrative Note: Anes Note Patient requests epidural for L&D. Sitting position. Level L3-L4 midlein approach. Sterile technique. Chloraprep scrub to lumbar area. Sterile fenestrated drape applied. Epidural space easily achieved single attempt using HUNG technique. HUNG at 3 cm. Cath threaded 5 cm with ease. Cath secured a ts kin using sterile clear adhesive dressing. Test 0416 3 cc 1.5% lido with epi negative. 0419 Load 10 cc 0.2% ropivicaine with 1 mcg cc fentanyl in slow divided doses. 0422 Pump started with 90 cc same solution. Rate is 8 cc hr with 6 cc q 20 min prn bolus. Carlo well. Time with patient [id number] Brendan Alegria RN REHAB[facility]ITATION
[2020-12-30] MEDS ORDERED: Ampicillin 1 GM in Sodium Chloride 0.9% 50 ML IV SCH ×2 (05:00→07:00)
[2020-12-30] MEDS ORDERED: Terbutaline 1 MG/ML SDV SUBCUT PRN (05:04)
[2020-12-30] MEDS ORDERED: Phenylephrine 1% 10 MG/ML SDV ONE (07:16)
--- NOTE | 2020-12-30 08:50 | PCM.LDHP ---
L&D History of Present Illness - General Date of Service: 12/30/20 Admit Problem/Dx: Patient Status Order with Admit Dx/Problem 12/29/20 23:55 Patient Status [ADT] Routine 12/30/20 01:35 Patient Status [ADT] Routine Admission Diagnosis/Problem Admission Diagnosis/Problem Planned Source of Information: Patient History Limitations: Reports: No Limitations - History of Present Illness Introduction:: 25yo @ 38w5d present to L&D with contractions and cervical changes. Denies VB, LOF. Reports good FM. She has h/o precipitous deliveries in the past and GBS bacteruia in this current . Otherwise care labs: O+, abs screen neg, RI, RPR neg, HepBsAg neg, HIV neg, GC/Chlam neg. Severity: Mild - Related Data Allergies/Adverse Reactions: Allergies Allergy/AdvReac Type Severity Reaction Status Date / Time No Known Allergies Allergy Verified 12/30/20 01:34 Home Medications: Home Meds Meclizine [Antivert] 1 tab PO PRN 12/29/20 [History] Ondansetron [Zofran ODT] 1 tab PO PRN 12/29/20 [History] Past Medical History - Past Health History Medical/Surgical History: Denies Medical/Surgical History HEENT History: Reports: None Cardiovascular History: Reports: None Respiratory History: Reports: None Gastrointestinal History: Reports: None Genitourinary History: Reports: None [employer] History: Reports: Musculoskeletal History: Reports: None Other Musculoskeletal History: History of hip dysplasia as verbalized by patient,no surgical intervention, on braces when she was a kid Neurological History: Reports: None Psychiatric History: Reports: None Endocrine/Metabolic History: Reports: None Hematologic History: Reports: Other (See Below) Other Hematologic History: easy bruising/bleeding Immunologic History: Reports: None Oncologic (Cancer) History: Reports: None Dermatologic History: Reports: None - Infectious Disease History Infectious Disease History: Reports: None - Past Surgical History Head Surgeries/Procedures: Reports: None Female Surgical History: Reports: None Social & Family History - Family History Family Medical History: No Pertinent Family History HEENT: Reports: None Cardiac: Reports: None Respiratory: Reports: None GI: Reports: None : Reports: None OBGYN: Reports: None Musculoskeletal: Reports: None Neurological: Reports: None Psychiatric: Reports: None Endocrine/Metabolic: Reports: Diabetes, type II Hematologic: Reports: None Immunologic: Reports: None Dermatologic: Reports: None Oncologic: Reports: Cervix - Caffeine Use Caffeine Use: Reports: Coffee, Energy Drinks, Soda, Tea H&P Review of Systems - Review of Systems: Review Of Systems: See Below General: Reports: No Symptoms HEENT: Reports: No Symptoms Pulmonary: Reports: No Symptoms Cardiovascular: Reports: No Symptoms Gastrointestinal: Reports: No Symptoms Genitourinary: Reports: No Symptoms Musculoskeletal: Reports: No Symptoms Skin: Reports: No Symptoms Psychiatric: Reports: No Symptoms Neurological: Reports: No Symptoms Hematologic/Lymphatic: Reports: No Symptoms Immunologic: Reports: No Symptoms L&D Exam - Exam Exam: See Below - Vital Signs Weight: 90.718 kg - OB Specific Contraction Intensity: Mild to Moderate Movement: Active Heart Tones: Present Heart Rate (FHR) Variability: Moderate (6-25 bmp) Presentation: Vertex Estimated Weight: 7lbs - Gill Score Gill Score Cervix Position: Midposition Gill Score Consistency: Medium Gill Score Effacement: 51-70% Gill Score Dilation: 3-4 cm Gill Score Infant's Station: -1 ,0 Gill Score Total: 8 - Exam General: Alert, Oriented Lungs: Normal Respiratory Effort Cardiovascular: Regular Rate GI/Abdominal Exam: Soft, Non-Tender Extremities: Normal Inspection Psychiatric: Alert, Normal Affect, Normal Mood - Patient Data Lab Results Last 24 hrs: Laboratory Results - last 24 hr 12/30/20 12/30/20 12/30/20 Range/Units 01:30 02:05 02:05 WBC 11.94 H (4.0-11.0) K/uL RBC 4.27 L (4.30-5.90) M/uL Hgb 11.3 L (12.0-16.0) g/dL Hct 36.2 (36.0-46.0) % MCV 84.8 (80.0-98.0) fL MCH 26.5 L (27.0-32.0) pg MCHC 31.2 (31.0-37.0) g/dL RDW Std Deviation 47.3 (28.0-62.0) fl RDW Coeff of Neftaly 15 (11.0-15.0) % Plt Count 264 (150-400) K/uL MPV 10.70 (7.40-12.00) fL Nucleated RBC % 0.0 /100WBC Nucleated RBCs # 0 K/uL SARS-CoV-2 RNA (FRANNY) NEGATIVE (NEGATIVE) Blood Type O POSITIVE Antibody Screen NEGATIVE Result Diagrams: 12/30/20 02:05 - Problem List (1) Active labor at term SNOMED Code(s): 21021493 ICD Code: [id number] - Status: Acute Priority: High Current Visit: Yes (2) GBS bacteriuria SNOMED Code(s): 98759324 ICD Code: R82.71 - BACTERIURIA Status: Acute Priority: High Current Visit: Yes Problem List Initiated/Reviewed/Updated: Yes Orders Last 24hrs: Active Orders 24 hr Category Date Time Status Patient Status [ADT] Routine ADT 12/29/20 23:55 Active Patient Status [ADT] Routine ADT 12/30/20 01:35 Active Heart Tones [RC] CONTINUOUS Care 12/30/20 01:35 Active Non Stress Test [RC] PER UNIT ROUTINE Care 12/29/20 23:55 Active Non Stress Test [RC] PER UNIT ROUTINE Care 12/30/20 01:35 Active May Shower [RC] ASDIRECTED Care 12/30/20 01:35 Active Notify Provider [RC] PRN Care 12/30/20 01:35 Active Notify Provider [RC] PRN Care 12/30/20 05:04 Active Notify Provider [RC] PRN Care 12/30/20 05:04 Active Notify Provider [RC] STAT Care 12/30/20 05:04 Active Oxygen Therapy [RC] ASDIRECTED Care 12/30/20 05:04 Active Up ad Tory [RC] ASDIRECTED Care 12/29/20 23:55 Active Up ad Tory [RC] ASDIRECTED Care 12/30/20 01:35 Active Vaginal Exam [RC] Click to Edit Care 12/29/20 23:55 Active Vaginal Exam [RC] PRN Care 12/30/20 01:35 Active Vaginal Exam [RC] PRN Care 12/30/20 05:04 Active Vital Signs [RC] PER UNIT ROUTINE Care 12/29/20 23:55 Active Vital Signs [RC] PER UNIT ROUTINE Care 12/30/20 01:35 Active RPR (SYPHILIS SERO) W/ RFLX [REF] Routine Lab 12/30/20 02:05 Received Ampicillin 1 gm Med 12/30/20 07:00 Active Sodium Chloride 0.9% [Normal Saline] 50 ml IV Q4H Butorphanol [Stadol] Med 12/30/20 01:34 Active 1 mg IVPUSH Q1H PRN Carboprost Tromethamine [Hemabate DS] Med 12/30/20 01:34 Active 250 mcg IM ASDIRECTED PRN Lactated Ringers [Ringers, Lactated] 1,000 ml Med 12/30/20 01:45 Active IV ASDIRECTED Lidocaine 1% [Xylocaine 1%] Med 12/30/20 01:34 Active 50 ml INJECT ONETIME PRN Methylergonovine [Methergine] Med 12/30/20 01:34 Active 0.2 mg IM ASDIRECTED PRN Nalbuphine [Nubain] Med 12/30/20 01:34 Active 10 mg IVPUSH Q1H PRN Oxytocin/0.9 % Sodium Chloride [Oxytocin 30 Unit/500 ML Med 12/30/20 01:45 Active -NS] 30 unit in 500 ml IV TITRATE Oxytocin/0.9 % Sodium Chloride [Oxytocin 30 Unit/500 ML Med 12/30/20 05:15 Active -NS] 30 unit in 500 ml IV TITRATE Sodium Chloride 0.9% [Normal Saline] Med 12/30/20 01:34 Active 10 ml IV ASDIRECTED PRN Sodium Chloride 0.9% [Saline Flush] Med 12/30/20 01:34 Active 10 ml FLUSH ASDIRECTED PRN Sodium Chloride 0.9% [Saline Flush] Med 12/30/20 01:34 Active 2.5 ml FLUSH ASDIRECTED PRN Terbutaline [Brethine] Med 12/30/20 05:04 Active 0.25 mg SUBCUT ASDIRECTED PRN Tranexamic Acid [Cyklokapron] 1,000 mg Med 12/30/20 01:34 Active Sodium Chloride 0.9% [Normal Saline] 100 ml IV ONETIME Water For Irrigation,Sterile [Sterile Water for Med 12/30/20 01:34 Active Irrigation] 1,000 ml IRR ASDIRECTED PRN miSOPROStoL [Cytotec] Med 12/30/20 01:34 Active 200 mcg PO ONETIME PRN Scalp Electrode [WOMSER] Per Unit Routine Oth 12/30/20 01:35 Ordered Peripheral IV Insertion Adult [OM.PC] Routine Oth 12/30/20 01:35 Ordered Resuscitation Status Routine Resus Stat 12/29/20 23:55 Ordered Medication Orders Butorphanol Tartrate (Butorphanol 1 Mg/Ml Sdv) 1 mg IVPUSH Q1H PRN PRN Reason: Pain Carboprost Tromethamine (Carboprost Tromethamine 250 Mcg/1 Ml Amp) 250 mcg IM ASDIRECTED PRN PRN Reason: Post Hemorrhage Lactated Ringer's (Ringers, Lactated) 1,000 mls @ 150 mls/hr IV ASDIRECTED [facility] Last Admin: 12/30/20 05:58 Dose: 150 mls/hr Documented by: Infusion: 12/30/20 05:16 Dose: 999 mls/hr Documented by: Admin: 12/30/20 04:15 Dose: 999 mls/hr Documented by: Infusion: 12/30/20 04:00 Dose: 150 mls/hr Documented by: Admin: 12/30/20 02:47 Dose: 150 mls/hr Documented by: ELYSSA Oxytocin/Sodium Chloride (Oxytocin 30 Unit/500 Ml-Ns) 30 unit in 500 mls @ 500 mls/hr IV TITRATE [facility] Tranexamic Acid 1,000 mg/ (Sodium Chloride) 110 mls @ 660 mls/hr IV ONETIME PRN PRN Reason: Bleeding Oxytocin/Sodium Chloride (Oxytocin 30 Unit/500 Ml-Ns) 30 unit in 500 mls @ 2 mls/hr IV TITRATE [facility]; Protocol Last Titration: 12/30/20 07:44 Dose: 10 munits/min, 10 mls/hr Documented by: Titration: 12/30/20 07:20 Dose: 8 munits/min, 8 mls/hr Documented by: Titration: 12/30/20 06:45 Dose: 6 munits/min, 6 mls/hr Documented by: Titration: 12/30/20 06:15 Dose: 4 munits/min, 4 mls/hr Documented by: Admin: 12/30/20 05:45 Dose: 2 munits/min, 2 mls/hr Documented by: ELYSSA Ampicillin Sodium 1 gm/ Sodium (Chloride) 50 mls @ 100 mls/hr IV Q4H [facility] Last Admin: 12/30/20 07:00 Dose: 100 mls/hr Documented by: ELYSSA Lidocaine HCl (Lidocaine 1% 50 Ml Mdv) 50 ml INJECT ONETIME PRN PRN Reason: Laceration repair Methylergonovine Maleate (Methylergonovine 0.2 Mg/1 Ml Amp) 0.2 mg IM ASDIRECTED PRN PRN Reason: Post Hemorrhage Misoprostol (Misoprostol 200 Mcg Tab) 200 mcg PO ONETIME PRN PRN Reason: Post Hemorrhage Nalbuphine HCl (Nalbuphine 10 Mg/1 Ml Vial) 10 mg IVPUSH Q1H PRN PRN Reason: Pain (severe 7-10) Sodium Chloride (Sodium Chloride 0.9% 10 Ml Syringe) 10 ml FLUSH ASDIRECTED PRN PRN Reason: Keep Vein Open Sodium Chloride (Sodium Chloride 0.9% 2.5 Ml Syringe) 2.5 ml FLUSH ASDIRECTED PRN PRN Reason: Keep Vein Open Sodium Chloride (Sodium Chloride 0.9% 10 Ml Sdv) 10 ml IV ASDIRECTED PRN PRN Reason: IV Use Sterile Water (Water For Irrigation,Sterile 1,000 Ml Container) 1,000 ml IRR ASDIRECTED PRN PRN Reason: delivery Terbutaline Sulfate (Terbutaline 1 Mg/Ml Sdv) 0.25 mg SUBCUT ASDIRECTED PRN PRN Reason: Tacysystole Assessment/Plan Comment:: 25yo @ 38w5d here in labor. Patient had made some cervical changes since she was checked in clinic yesterday. Additionally, she lives 1hr away and has h/o precipitous deliveries and GBS bacteruia during this . We will admit her and start GBS prophilaxis. Expectant management. Plan to augment with pitocin and/or AROM PRN Epidural PRN
[2020-12-30] MEDS ORDERED: Acetaminophen 500 MG Tab PO PRN ×2 (10:52)
[2020-12-30] MEDS ORDERED: Bisacodyl 10 MG Supp RECTAL PRN (10:52)
[2020-12-30] MEDS ORDERED: Docusate Sodium 100 MG Cap PO PRN (10:52)
[2020-12-30] MEDS ORDERED: Benzocaine/Menthol 20%-0.5% Spray 78 GM Cannister TOP PRN (10:52)
[2020-12-30] MEDS ORDERED: Lanolin 100% Cream 7 GM Tube TOP PRN (10:52)
[2020-12-30] MEDS ORDERED: Witch Hazel Medicated Pads 40/Jar TOP PRN (10:52)
[2020-12-30] MEDS ORDERED: Ibuprofen 400 MG Tab PO PRN (10:52)
--- NOTE | 2020-12-30 10:59 | PCM.DEL ---
L & D Note - General Info Date of Service: 12/30/20 Mother's Due Date: 01[birth year]21 - Delivery Note Labor: Spontaneous Cervical Ripening Method: Oxytocin Delivery Outcome: Livebirth Infant Delivery Method: Spontaneous Vaginal Delivery-Single Infant Delivery Mode: Spontaneous Presentation: Vertex Nuchal Cord: None Anesthesia Type: Epidural Amniotic Fluid Description: Clear Episiotomy Type: None Laceration: None Placenta: Intact, Spontaneous Cord: 3 Vessels Estimated Blood Loss: 200 Resuscitation Needed: No Score 1 min: 8 Score 5 min: 9 Delivery Comments (Free Text/Narrative):: 25yo G5 now P4014 @ 38w5d [place] after uncomplicated . course was unremarkable. of a live male, 7lb 13oz and Apgars 8/9. Delivered ABIMBOLA, no nuchal cord, however, presence of a true knot. No meconium. Vertex and body delivered without difficulty. Cord clamped and cut. Nose and mouth bulb suctioned; Baby placed on Mom's abdomen. Placenta delivered spontaneously, intact. Fundus firm, minimal bleeding. Placenta appears intact with 3 vessel cord. Perineum and vagina inspected, no laceration appreciated. EBL 200cc. Hemostasis. Patient tolerated procedure well, recovering in LDR. Infant by her side - General Info Date of Service: 12/30/20 Admission Dx/Problem (Free Text): Patient Status Order with Admit Dx/Problem 12/29/20 23:55 Patient Status [ADT] Routine 12/30/20 01:35 Patient Status [ADT] Routine Admission Diagnosis/Problem Admission Diagnosis/Problem Planned Subjective Update: Uncomplicated . Mom and baby are doing well. Functional Status: Reports: Pain Controlled - Review of Systems General: Reports: No Symptoms HEENT: Reports: No Symptoms Pulmonary: Reports: No Symptoms Cardiovascular: Reports: No Symptoms Gastrointestinal: Reports: No Symptoms Genitourinary: Reports: No Symptoms Musculoskeletal: Reports: No Symptoms Skin: Reports: No Symptoms Neurological: Reports: No Symptoms Psychiatric: Reports: No Symptoms - Patient Data Weight - Most Recent: 90.718 kg Lab Results Last 24 Hours: Laboratory Results - last 24 hr 12/30/20 12/30/20 12/30/20 Range/Units 01:30 02:05 02:05 WBC 11.94 H (4.0-11.0) K/uL RBC 4.27 L (4.30-5.90) M/uL Hgb 11.3 L (12.0-16.0) g/dL Hct 36.2 (36.0-46.0) % MCV 84.8 (80.0-98.0) fL MCH 26.5 L (27.0-32.0) pg MCHC 31.2 (31.0-37.0) g/dL RDW Std Deviation 47.3 (28.0-62.0) fl RDW Coeff of Neftaly 15 (11.0-15.0) % Plt Count 264 (150-400) K/uL MPV 10.70 (7.40-12.00) fL Nucleated RBC % 0.0 /100WBC Nucleated RBCs # 0 K/uL SARS-CoV-2 RNA (FRANNY) NEGATIVE (NEGATIVE) Blood Type O POSITIVE Antibody Screen NEGATIVE Med Orders - Current: Current Medications Butorphanol Tartrate (Butorphanol 1 Mg/Ml Sdv) 1 mg IVPUSH Q1H PRN PRN Reason: Pain Carboprost Tromethamine (Carboprost Tromethamine 250 Mcg/1 Ml Amp) 250 mcg IM ASDIRECTED PRN PRN Reason: Post Hemorrhage Lactated Ringer's (Ringers, Lactated) 1,000 mls @ 150 mls/hr IV ASDIRECTED MARVIN Last Admin: 12/30/20 05:58 Dose: 150 mls/hr Documented by: Oxytocin/Sodium Chloride (Oxytocin 30 Unit/500 Ml-Ns) 30 unit in 500 mls @ 500 mls/hr IV TITRATE MARVIN Tranexamic Acid 1,000 mg/ (Sodium Chloride) 110 mls @ 660 mls/hr IV ONETIME PRN PRN Reason: Bleeding Oxytocin/Sodium Chloride (Oxytocin 30 Unit/500 Ml-Ns) 30 unit in 500 mls @ 2 mls/hr IV TITRATE [facility]; Protocol Last Titration: 12/30/20 07:44 Dose: 10 munits/min, 10 mls/hr Documented by: Ampicillin Sodium 1 gm/ Sodium (Chloride) 50 mls @ 100 mls/hr IV Q4H [facility] Last Admin: 12/30/20 07:00 Dose: 100 mls/hr Documented by: Lidocaine HCl (Lidocaine 1% 50 Ml Mdv) 50 ml INJECT ONETIME PRN PRN Reason: Laceration repair Methylergonovine Maleate (Methylergonovine 0.2 Mg/1 Ml Amp) 0.2 mg IM ASDIRECTED PRN PRN Reason: Post Hemorrhage Misoprostol (Misoprostol 200 Mcg Tab) 200 mcg PO ONETIME PRN PRN Reason: Post Hemorrhage Nalbuphine HCl (Nalbuphine 10 Mg/1 Ml Vial) 10 mg IVPUSH Q1H PRN PRN Reason: Pain (severe 7-10) Sodium Chloride (Sodium Chloride 0.9% 10 Ml Syringe) 10 ml FLUSH ASDIRECTED PRN PRN Reason: Keep Vein Open Sodium Chloride (Sodium Chloride 0.9% 2.5 Ml Syringe) 2.5 ml FLUSH ASDIRECTED PRN PRN Reason: Keep Vein Open Sodium Chloride (Sodium Chloride 0.9% 10 Ml Sdv) 10 ml IV ASDIRECTED PRN PRN Reason: IV Use Sterile Water (Water For Irrigation,Sterile 1,000 Ml Container) 1,000 ml IRR ASDIRECTED PRN PRN Reason: delivery Terbutaline Sulfate (Terbutaline 1 Mg/Ml Sdv) 0.25 mg SUBCUT ASDIRECTED PRN PRN Reason: Tacysystole Discontinued Medications Fentanyl (Fentanyl 100 Mcg/2 Ml Sdv) Confirm Administered Dose 100 mcg .ROUTE .STK-MED ONE Stop: 12/30/20 04:03 Ampicillin Sodium 2 gm/ Sodium (Chloride) 100 mls @ 200 mls/hr IV ONETIME ONE Stop: 12/30/20 02:29 Last Admin: 12/30/20 02:55 Dose: 200 mls/hr Documented by: Ampicillin Sodium 1 gm/ Sodium (Chloride) 50 mls @ 100 mls/hr IV Q4H MARVIN Ropivacaine (Naropin 0.2%) Confirm Administered Dose 100 mls @ as directed .ROUTE .STK-MED ONE Stop: 12/30/20 04:03 Phenylephrine HCl (Phenylephrine 1% 10 Mg/Ml Sdv) Confirm Administered Dose 10 mg .ROUTE .STK-MED ONE Stop: 12/30/20 07:17 - Exam General: Alert, Oriented Lungs: Normal Respiratory Effort Cardiovascular: Regular Rate GI/Abdominal Exam: Soft, Non-Tender Extremities: Normal Inspection Psy/Mental Status: Alert, Normal Affect, Normal Mood - Problem List & Annotations (1) Active labor at term SNOMED Code(s): 62553428 Code(s): QOZ2413 - Status: Acute Priority: High Current Visit: Yes (2) GBS bacteriuria SNOMED Code(s): 10070581 Code(s): R82.71 - BACTERIURIA Status: Acute Priority: High Current Visit: Yes (3) (normal spontaneous vaginal delivery) SNOMED Code(s): 16665677, 946715095 Code(s): O80 - ENCOUNTER FOR FULL-TERM UNCOMPLICATED DELIVERY Status: Acute Priority: High Current Visit: Yes - Problem List Review Problem List Initiated/Reviewed/Updated: Yes - My Orders Last 24 Hours: My Active Orders 12/29/20 23:55 Up ad Tory [RC] ASDIRECTED Vital Signs [RC] PER UNIT ROUTINE Resuscitation Status Routine 12/30/20 01:34 Butorphanol [Stadol] 1 mg IVPUSH Q1H PRN Carboprost Tromethamine [Hemabate DS] 250 mcg IM ASDIRECTED PRN Lidocaine 1% [Xylocaine 1%] 50 ml INJECT ONETIME PRN Methylergonovine [Methergine] 0.2 mg IM ASDIRECTED PRN Nalbuphine [Nubain] 10 mg IVPUSH Q1H PRN Sodium Chloride 0.9% [Normal Saline] 10 ml IV ASDIRECTED PRN Sodium Chloride 0.9% [Saline Flush] 10 ml FLUSH ASDIRECTED PRN Sodium Chloride 0.9% [Saline Flush] 2.5 ml FLUSH ASDIRECTED PRN Tranexamic Acid [Cyklokapron] 1,000 mg Sodium Chloride 0.9% [Normal Saline] 100 ml IV ONETIME Water For Irrigation,Sterile [Sterile Water for Irrigation] 1,000 ml IRR ASDIRECTED PRN miSOPROStoL [Cytotec] 200 mcg PO ONETIME PRN 12/30/20 01:35 May Shower [RC] ASDIRECTED Notify Provider [RC] PRN Vital Signs [RC] PER UNIT ROUTINE Scalp Electrode [WOMSER] Per Unit Routine Peripheral IV Insertion Adult [OM.PC] Routine 12/30/20 01:45 Lactated Ringers [Ringers, Lactated] 1,000 ml IV ASDIRECTED Oxytocin/0.9 % Sodium Chloride [Oxytocin 30 Unit/500 ML-NS] 30 unit in 500 ml IV TITRATE 12/30/20 02:05 RPR (SYPHILIS SERO) W/ RFLX [REF] Routine 12/30/20 05:04 Notify Provider [RC] PRN Notify Provider [RC] PRN Notify Provider [RC] STAT Oxygen Therapy [RC] ASDIRECTED Terbutaline [Brethine] 0.25 mg SUBCUT ASDIRECTED PRN 12/30/20 05:15 Oxytocin/0.9 % Sodium Chloride [Oxytocin 30 Unit/500 ML-NS] 30 unit in 500 ml IV TITRATE 12/30/20 07:00 Ampicillin 1 gm Sodium Chloride 0.9% [Normal Saline] 50 ml IV Q4H 12/30/20 10:52 Acetaminophen [Tylenol Extra Strength] 1,000 mg PO Q4H PRN Acetaminophen [Tylenol Extra Strength] 500 mg PO Q4H PRN Benzocaine/Menthol [Dermoplast Pain Relief 20%-0.5% Roby] 78 gm TOP ASDIRECTED PRN Docusate Sodium [Colace] 100 mg PO BID PRN Ibuprofen [Motrin] 400 mg PO Q4H PRN Ibuprofen [Motrin] 800 mg PO Q6H PRN Lanolin [Lansinoh HPA] See Dose Instructions TOP ASDIRECTED PRN bisacodyL [Dulcolax] 10 mg RECTAL ONETIME PRN witch Goyo [Tucks] 1 pad TOP ASDIRECTED PRN 12/30/20 10:53 Patient Status [ADT] Routine May Shower [RC] ASDIRECTED Up ad Tory [RC] ASDIRECTED Vital Signs [RC] PER UNIT ROUTINE Assess Lochia [WOMSER] Per Unit Routine Assess Uterine Involution [WOMSER] Per Unit Routine Peripheral IV Discontinue [OM.PC] Routine 12/31/20 05:11 HEMOGLOBIN/HEMATOCRIT,HH [HEME] Timed - Plan Plan:: 25yo G5 now P4014 s/p uncomplicated @ 38w5d. Patient with a h/o precipitous deliveries and GBS bacteruia during this , received >2 dose of PCN for GBS prophylaxis during labor. Admit for routine care.
[2020-12-30] MEDS: Ibuprofen 800 MG Tab PO PRN ×2 (12:50→20:46)
--- NOTE | 2020-12-31 07:03 | PCM48HPAN ---
Post Anesthesia Note - EVALUATION WITHIN 48HRS OF ANESTHETIC Vital Signs in Normal Range: Yes Patient Participated in Evaluation: Yes Respiratory Function Stable: Yes Airway Patent: Yes Cardiovascular Function Stable: Yes Hydration Status Stable: Yes Pain Control Satisfactory: Yes Nausea and Vomiting Control Satisfactory: Yes Mental Status Recovered: Yes Vital Signs: Last Vital Signs Temp 37.1 C 12/31/20 03:00 Pulse 74 12/31/20 03:00 Resp 18 12/31/20 03:00 BP 108/67 12/31/20 03:00 Pulse Ox 99 12/31/20 03:00
[2020-12-31 11:50] VITALS: BP 128/76; PULSE 62
--- NOTE | 2020-12-31 14:22 | PCM.DCSUM1 ---
Discharge Summary - Hospital Course Free Text/Narrative:: 25yo G5 now P4014 @ 38w5d [place] after uncomplicated of a live male, 7lb 13oz and Apgars 8/9. EBL 200cc. Hemostasis. Patient tolerated procedure well course was unremarkable. Diagnosis: Stroke: No - Discharge Data Discharge Date: 12/31/20 Discharge Disposition: Home, Self-Care 01 Condition: Good - Referral to Home Health Primary Care Physician: PCP None - Discharge Diagnosis/Problem(s) (1) GBS bacteriuria SNOMED Code(s): 01715479 ICD Code: R82.71 - BACTERIURIA Status: Acute Priority: High Current Visit: Yes (2) (normal spontaneous vaginal delivery) SNOMED Code(s): 68953480, [id number] ICD Code: O80 - ENCOUNTER FOR FULL-TERM UNCOMPLICATED DELIVERY Status: Acute Priority: High Current Visit: Yes - Discharge Plan *PRESCRIPTION DRUG MONITORING PROGRAM REVIEWED*: Not Applicable *COPY OF PRESCRIPTION DRUG MONITORING REPORT IN PATIENT GEORGINA: Not Applicable Home Medications: Home Meds Meclizine [Antivert] 1 tab PO PRN 12/29/20 [History] Ondansetron [Zofran ODT] 1 tab PO PRN 12/29/20 [History] - Discharge Summary/Plan Comment DC Time >30 min.: Yes - General Info Date of Service: 12/31/20 Admission Dx/Problem (Free Text: Patient Status Order with Admit Dx/Problem 12/29/20 23:55 Patient Status [ADT] Routine 12/30/20 01:35 Patient Status [ADT] Routine Admission Diagnosis/Problem Admission Diagnosis/Problem Planned Subjective Update: Uncomplicated . Mom and baby are doing well. Patient reports pain is well controlled; minimal bleeding. Ambulating without lightheadedness/dizziness. Tolerating PO without nausea or vomiting. Functional Status: Reports: Pain Controlled - Review of Systems General: Reports: No Symptoms Pulmonary: Reports: No Symptoms Cardiovascular: Reports: No Symptoms Gastrointestinal: Reports: No Symptoms Psychiatric: Reports: No Symptoms - Patient Data Vitals - Most Recent: Last Vital Signs Temp 97.6 F 12/31/20 09:55 Pulse 62 12/31/20 09:55 Resp 17 12/31/20 09:55 BP 128/76 12/31/20 09:55 Pulse Ox 96 12/31/20 09:55 Weight - Most Recent: 90.718 kg Lab Results - Last 24 hrs: Laboratory Results - last 24 hr 12/31/20 Range/Units 06:25 Hgb 9.4 L (12.0-16.0) g/dL Hct 30.4 L (36.0-46.0) % Med Orders - Current: Current Medications Acetaminophen (Acetaminophen 500 Mg Tab) 500 mg PO Q4H PRN PRN Reason: Pain Acetaminophen (Acetaminophen 500 Mg Tab) 1,000 mg PO Q4H PRN PRN Reason: Pain Last Admin: 12/31/20 02:57 Dose: 1,000 mg Documented by: Benzocaine/Menthol (Benzocaine/Menthol 20%-0.5% [place] 78 Gm Cannister) 78 gm TOP ASDIRECTED PRN PRN Reason: Perineal Comfort Measure Last Admin: 12/30/20 12:54 Dose: 1 applic Documented by: Bisacodyl (Bisacodyl 10 Mg Supp) 10 mg RECTAL ONETIME PRN PRN Reason: Constipation Butorphanol Tartrate (Butorphanol 1 Mg/Ml Sdv) 1 mg IVPUSH Q1H PRN PRN Reason: Pain Carboprost Tromethamine (Carboprost Tromethamine 250 Mcg/1 Ml Amp) 250 mcg IM ASDIRECTED PRN PRN Reason: Post Hemorrhage Docusate Sodium (Docusate Sodium 100 Mg Cap) 100 mg PO BID PRN PRN Reason: Constipation Last Admin: 12/30/20 12:51 Dose: 100 mg Documented by: Emollient Ointment (Lanolin 100% Cream 7 Gm Tube) 0 gm TOP ASDIRECTED PRN PRN Reason: Sore Nipples Last Admin: 12/30/20 12:53 Dose: 1 applic Documented by: Lactated Ringer's (Ringers, Lactated) 1,000 mls @ 150 mls/hr IV ASDIRECTED MARVIN Last Admin: 12/30/20 05:58 Dose: 150 mls/hr Documented by: Oxytocin/Sodium Chloride (Oxytocin 30 Unit/500 Ml-Ns) 30 unit in 500 mls @ 500 mls/hr IV TITRATE MARVIN Tranexamic Acid 1,000 mg/ (Sodium Chloride) 110 mls @ 660 mls/hr IV ONETIME PRN PRN Reason: Bleeding Oxytocin/Sodium Chloride (Oxytocin 30 Unit/500 Ml-Ns) 30 unit in 500 mls @ 2 mls/hr IV TITRATE MARVIN; Protocol Last Titration: 12/30/20 07:44 Dose: 10 munits/min, 10 mls/hr Documented by: Ampicillin Sodium 1 gm/ Sodium (Chloride) 50 mls @ 100 mls/hr IV Q4H MARVIN Last Admin: 12/30/20 07:00 Dose: 100 mls/hr Documented by: Ibuprofen (Ibuprofen 400 Mg Tab) 400 mg PO Q4H PRN PRN Reason: Pain Ibuprofen (Ibuprofen 800 Mg Tab) 800 mg PO Q6H PRN PRN Reason: Pain Last Admin: 12/30/20 20:46 Dose: 800 mg Documented by: Lidocaine HCl (Lidocaine 1% 50 Ml Mdv) 50 ml INJECT ONETIME PRN PRN Reason: Laceration repair Methylergonovine Maleate (Methylergonovine 0.2 Mg/1 Ml Amp) 0.2 mg IM ASDIRECTED PRN PRN Reason: Post Hemorrhage Misoprostol (Misoprostol 200 Mcg Tab) 200 mcg PO ONETIME PRN PRN Reason: Post Hemorrhage Nalbuphine HCl (Nalbuphine 10 Mg/1 Ml Vial) 10 mg IVPUSH Q1H PRN PRN Reason: Pain (severe 7-10) Sodium Chloride (Sodium Chloride 0.9% 10 Ml Syringe) 10 ml FLUSH ASDIRECTED PRN PRN Reason: Keep Vein Open Sodium Chloride (Sodium Chloride 0.9% 2.5 Ml Syringe) 2.5 ml FLUSH ASDIRECTED PRN PRN Reason: Keep Vein Open Sodium Chloride (Sodium Chloride 0.9% 10 Ml Sdv) 10 ml IV ASDIRECTED PRN PRN Reason: IV Use Sterile Water (Water For Irrigation,Sterile 1,000 Ml Container) 1,000 ml IRR ASDIRECTED PRN PRN Reason: delivery Terbutaline Sulfate (Terbutaline 1 Mg/Ml Sdv) 0.25 mg SUBCUT ASDIRECTED PRN PRN Reason: Tacysystole Witch Terri (Witch Terri Medicated Pads 40/Jar) 1 pad TOP ASDIRECTED PRN PRN Reason: comfort care Last Admin: 12/30/20 12:54 Dose: 1 applic Documented by: Discontinued Medications Fentanyl (Fentanyl 100 Mcg/2 Ml Sdv) Confirm Administered Dose 100 mcg .ROUTE .STK-MED ONE Stop: 12/30/20 04:03 Last Admin: 12/31/20 07:40 Dose: Not Given Documented by: Ampicillin Sodium 2 gm/ Sodium (Chloride) 100 mls @ 200 mls/hr IV ONETIME ONE Stop: 12/30/20 02:29 Last Admin: 12/30/20 02:55 Dose: 200 mls/hr Documented by: Ampicillin Sodium 1 gm/ Sodium (Chloride) 50 mls @ 100 mls/hr IV Q4H MARVIN Ropivacaine (Naropin 0.2%) Confirm Administered Dose 100 mls @ as directed .ROUTE .STK-MED ONE Stop: 12/30/20 04:03 Last Admin: 12/31/20 07:40 Dose: Not Given Documented by: Phenylephrine HCl (Phenylephrine 1% 10 Mg/Ml Sdv) Confirm Administered Dose 10 mg .ROUTE .STK-MED ONE Stop: 12/30/20 07:17 Last Admin: 12/31/20 07:40 Dose: Not Given Documented by: - Exam General: Reports: Alert, Oriented Lungs: Reports: Normal Respiratory Effort Cardiovascular: Reports: Regular Rate GI/Abdominal Exam: Soft, Non-Tender Extremities: Normal Inspection Psy/Mental Status: Reports: Alert, Normal Affect, Normal Mood
[2020-12-31] MEDS: Ibuprofen 800 MG Tab PO PRN (15:03)
== END 2020-12-31 15:45 | disposition home or self-care (01) | DRG 807 ==
LOC: MW.OBCHECK 23:18 → MW.OB 23:18 → MW.OBCHECK 12-30 01:49 → MW.OB 12-30 01:55 → OBSVTOIN 12-30 10:53 → MW.OB 12-30 13:42
PROVIDERS: ADMIT Obstetrics & Gynecology Obstetrics; ATTEND Obstetrics & Gynecology Obstetrics
PROC: 10E0XZZ Delivery of Products of Conception, External Approach (ICD-10-PCS; principal; 2020-12-30)
PROC: 3E033VJ Introduction of Other Hormone into Peripheral Vein, Percutaneous Approach (ICD-10-PCS; 2020-12-30)
PROC: 3E0R3BZ Introduction of Anesthetic Agent into Spinal Canal, Percutaneous Approach (ICD-10-PCS; 2020-12-30)
PROC: 10907ZC Drainage of Amniotic Fluid, Therapeutic from Products of Conception, Via Natural or Artificial Opening (ICD-10-PCS; 2020-12-30)
PROC: 00HU33Z Insertion of Infusion Device into Spinal Canal, Percutaneous Approach (ICD-10-PCS; 2020-12-30)
DX: O99.824 Streptococcus B carrier state complicating childbirth (principal); Z37.0 Single live birth; Z3A.38 38 weeks gestation of pregnancy; Z20.822 Contact with and (suspected) exposure to COVID-19
CPT/HCPCS: 36415; 59025; 59409; 85014; 85018; 85027; 86592; 86850; 86900; 86901; A9270-GY; J0290; J2370; J2590; J2795; J3010; J7120; U0002